=== PATIENT | male | born 1940 | race Caucasian/White ===

== ENCOUNTER 2016-12-27 18:51 | Inpatient (IN) ==
[2016-12-27] MEDS ORDERED: ASPIRIN PO STA (18:58)
[2016-12-27 19:42] LABS: BASO% 0.4 % (0.0-0.8); EOS# 0.01 X1000 (0.0-0.7); HEMATOCRIT 34.5 % (42.0-52.0); HEMOGLOBIN 10.6 g/dL (14.0-18.0); IMM GRAN# 1.25 X1000 (0.0-0.04); IMM GRAN% 5.9 % (0.0-0.5); LYMPH# 1.26 X1000 (1.2-3.4); LYMPH% 5.9 % (20.5-51.1); MANUAL DIFF NEEDED? NO; MCHC 30.7 g/dL (33-37); MCV 91.3 FL (81-99); MONO# 0.92 X1000 (0.11-0.59); MONO% 4.3 % (1.7-9.3); MPV 10.5 FL (7.4-10.4); NEUT% 83.5 % (42.2-75.2); PLT 199 X1000 (130-400); RBC 3.78 XMIL (4.7-6.1)
--- NOTE | 2016-12-27 19:44 | Diag Imaging Result Doc PS360 ---
CHEST-2 VIEWS - 12/27/2016 INDICATION: CP TECHNIQUE: COMPARISON: 11/20/2016 FINDINGS: There is improved aeration of the dense left upper lobe consolidation, with an air cavity present now, that was visible on the CT from 11/06/2016. There is severe COPD with pulmonary scarring. No new infiltrates. Heart size is normal. IMPRESSION: Slight improvement in aeration of the densely consolidated left upper lobe. No new abnormalities. Electronically signed by Jeb Webber 12/27/2016 7:42 PM
[2016-12-27 19:46] LABS: INR 1.01; PROTIME 10.6 Seconds (9.2-11.7); PTT 25.4 Seconds (22.0-36.0)
[2016-12-27 20:02] LABS: AGAP 13; ALKALINE PHOSPHATASE 118 U/L (32-122); BUN 18 mg/dL (8-22); CALCIUM 8.8 mg/dL (8.8-10.2); CHLORIDE 96 mmol/L (98-107); COSMO 268; GOT 33 U/L (10-34); GPT 21 U/L (10-44); MAGNESIUM 1.5 mg/dL (1.5-2.7); POTASSIUM 4.6 mmol/L (3.5-5.1); SODIUM 130 mmol/L (136-145); TCO2 21 mmol/L (25-35); TOTAL BILIRUBIN 0.18 mg/dL (0.20-1.00); TOTAL PROTEIN 5.9 g/dL (6.3-8.3)
[2016-12-27 20:03] LABS: CK PROFILE 510 U/L (24-204)
[2016-12-27 20:17] LABS: CK INDEX 13.5 (0.0-2.5); CK-MB 69.03 ng/mL (0.0-5.0)
--- NOTE | 2016-12-27 21:33 | Diag Imaging Result Doc PS360 ---
ANGIOGRAM/PULMONARY ARTERIES - 12/27/2016 INDICATION: coughing blood, lung cancer, + DDimer and trop TECHNIQUE: Axial CT images were obtained after administering intravenous contrast. Coronal MIP images were generated. A CT dose reduction protocol was used. COMPARISON: 11/20/2016 FINDINGS: There is no visible pulmonary embolism. No active contrast extravasation or obvious source of the bleeding. There is decreased density of the consolidated left upper lobe, with an air cavity centrally. This cavity was fluid-filled but visible on 11/20/2016. There are CABG changes. Heart size is grossly normal. There is chronic bronchitis particularly in the lower lobes. There is some mucous plugging of segmental airways in the right lower lobe. There is severe COPD. The adrenals are bulky stable from prior. There are some stable gallstones in the gallbladder. There are moderate degenerative changes of the spine. No acute or suspicious bony lesion. IMPRESSION: 1. No pulmonary embolism or source for the bleeding. 2. Improved aeration of the diseased consolidated left upper lobe. 3. Severe COPD with chronic bronchitis. Mucous plugging of segmental airways in the right lower lobe. Electronically signed by Jeb Webber 12/27/2016 9:30 PM
[2016-12-27 21:45] LABS: CK INDEX 13.7 (0.0-2.5); CK-MB 122.5 ng/mL (0.0-5.0)
--- NOTE | 2016-12-27 21:45 | PROVIDER DOCUMENTATION ---
This chart was entered by Chau Morrow Scribe, acting as scribe for Jamaal Marshall MD. HPI-Chest Pain - General Chief Complaint: Chest Pain Stated Complaint: "CP, SPITTING UP BLOOD" Time Seen by Provider: 12/27/16 19:04 Source: patient Allergies/Adverse Reactions: Patient Allergies Allergy/AdvReac Type Severity Reaction Status Date / Time No Known Allergies Allergy Verified 12/27/16 19:43 Home Medications: Home Medication List Medication Instructions Recorded Confirmed Last Taken Type ATORVAstatin [Lipitor] 40 mg PO HS 08/09/12 12/27/16 12/26/16 History Clopidogrel [Plavix] 75 mg PO DAILY 08/09/12 12/27/16 12/27/16 History Albuterol Sulfate [Proair Hfa] 2 puff IH Q4H PRN PRN 11/20/16 12/27/16 12/27/16 History Ferrous Sulfate [Iron] 325 mg PO BID 11/20/16 12/27/16 12/27/16 History Megestrol Acetate 40 mg PO DAILY 11/20/16 12/27/16 12/27/16 History Pantoprazole Sodium 40 mg PO DAILY 11/20/16 12/27/16 12/27/16 History Sitagliptin Phosphate [Januvia] 100 mg PO DAILY 11/20/16 12/27/16 12/27/16 History Dexamethasone 2 mg PO HS 12/27/16 12/27/16 12/26/16 History Dexamethasone 4 mg PO DAILY 12/27/16 12/27/16 12/27/16 History Sertraline HCl 25 mg PO DAILY 12/27/16 12/27/16 12/27/16 History Temazepam 15 mg PO HS 12/27/16 12/27/16 12/26/16 History - History of Present Illness-CP Nature of Presenting Problem: Pt is a 76 yowm who presents to ER via EMS with CC of chest pain that radiated to LUE that started this am. Pt reports that he has had similar pain like this before and states that the pain is normally intermittent, but the pain never resolved today, so pt called EMS. Pt reports that he took 1/4 of a 325mg aspirin , and states his pain is resolving. Pt also complains of hemoptysis and SOB, but has hx of lung cancer (last chemo tx x2 weeks ago) but reports chronic SOB. Pt also reports hx of HTN and hyperlipidemia. Location: reports: central Chest Pain Radiation: reports: arms (LUE) Severity in ED: moderate Onset/Duration: this morning Timing: improving Associated Symptoms: reports: shortness of breath (hemoptysis). denies: abdominal pain, back pain, diaphoresis, dizziness, edema, fatigue, headache, heartburn, nausea, rash, swelling/lump in chest, syncope, vomiting, weakness Aspirin Treatment Today: 325 mg x 1 (325x1/4 mg), provided at home Similar Symptoms Previously?: Yes Recently Seen Here or By Another Healthcare Provider: No Review of Systems - Adult - REVIEW OF SYSTEMS - ADULT Constitutional: denies: chills, fever, fatique, night sweats, weight gain, weight loss Eyes: reports: no symptoms reported Ears, Nose, Mouth & Throat: reports: no symptoms reported Cardiovascular: reports: chest pain. denies: edema, heart murmur, irregular heart rate, orthopnea, palpitations, poor circulation, PND, syncope Respiratory: reports: hemoptysis, shortness of breath. denies: chronic cough, cough, dyspnea on exertion, excessive sputum production, pleurisy, wheezing Gastrointestinal: denies: diarrhea, nausea, vomiting Genitourinary: reports: no symptoms reported Musculoskeletal: reports: no symptoms reported Integumentary: reports: no symptoms reported Neurological: reports: no symptoms reported Psychiatric: reports: no symptoms reported Endocrine: reports: no symptoms reported Hematologic/Lymphatic: reports: no symptoms reported Allergic/Immunologic: reports: no symptoms reported All Other Systems: Reviewed and Negative Past History - Adult - PAST MEDICAL HISTORY-ADULT Review of Records: reports: Nursing Assessment Review, Medications Reviewed Respiratory: reports: cancer - IMMUNIZATION STATUS Childhood Immunizations: See Nurse Assessment Flu Vaccine: See Nurse Assessment Physical Exam-General - PHYSICAL EXAM-ADULT Initial Vital Signs Reviewed: Yes - CONSTITUTIONAL General Appearance: appears well, alert, mild distress - EYES Eyes: PERRL/EOMI, pink conjunctivae - RESPIRATORY Respiratory: chest non-tender, lungs clear, no pleuratic chest pain, no respiratory distress, no accessory muscle use, decreased breath sounds (coarse breath sounds bilaterally). negative: normal breath sounds, wheezing - CARDIOVASCULAR Cardiovascular: normal peripheral pulses, regular rate, rhythm. negative: bradycardia, tachycardia, irregularly irregular - GASTROINTESTINAL (ABDOMEN) Abdominal Exam: normal bowel sounds, non tender, soft, no organomegaly, no pulsatile mass. negative: guarding, rebound, tenderness - MUSCULOSKELETAL Back Exam: no CVA tenderness, no vertebral tenderness. negative: CVA tenderness , vertebral tenderness Extremity: no pedal edema, no calf tenderness, normal capillary refill, pelvis stable. negative: pedal edema - PSYCHIATRIC Psych/Mental Status: normal mood/affect, normal thought content, normal thought process, oriented x 3 Progress - PLAN OF CARE/RESULTS Progress/Plan/Lab Results: Vital Signs - 8 hr 12/27/16 18:58 12/27/16 19:07 12/27/16 19:45 Temperature 98.0 F Pulse Rate 105 H 99 H 100 H Respiratory Rate 24 22 18 Blood Pressure 162/79 163/100 150/91 O2 Sat by Pulse Oximetry 100 98 98 12/27/16 21:26 Temperature Pulse Rate 91 H Respiratory Rate 24 Blood Pressure 136/86 O2 Sat by Pulse Oximetry 99 Laboratory Results - last 24 hr 12/27/16 12/27/16 12/27/16 19:10 19:10 19:10 WBC 21.23 H RBC 3.78 L Hgb 10.6 L Hct 34.5 L MCV 91.3 MCH 28.0 MCHC 30.7 L RDW Std Deviation 19.4 H Plt Count 199 MPV 10.5 H Immature Gran % (Auto) 5.9 H Neut % (Auto) 83.5 H Lymph % (Auto) 5.9 L [place] % (Auto) 4.3 Eos % (Auto) 0.0 Baso % (Auto) 0.4 Immature Gran # (Auto) 1.25 H Neut # (Auto) 17.71 H Lymph # (Auto) 1.26 [place] # (Auto) 0.92 H Eos # (Auto) 0.01 Baso # (Auto) 0.08 PT INR PTT (Actin FS) D-Dimer 4.25 H Sodium 130 L Potassium 4.6 Chloride 96 L Carbon Dioxide 21 L Anion Gap 13 BUN 18 Creatinine 0.6 L Estimated GFR/1.73 m2 > 60 BUN/Creatinine Ratio 30 Glucose 196 H Calculated Osmolality 268 Calcium 8.8 Magnesium 1.5 Total Bilirubin 0.18 L AST 33 ALT 21 Alkaline Phosphatase 118 Creatine Kinase 510 H Creatine Kinase Index 13.5 H CK-MB (CK-2) 69.03 H Troponin T Jyp-A-Aobnjbhrvzg Pept Total Protein 5.9 L Albumin 3.0 L Globulin 2.9 Albumin/Globulin Ratio 1.0 12/27/16 12/27/16 12/27/16 19:10 19:10 19:21 WBC RBC Hgb Hct MCV MCH MCHC RDW Std Deviation Plt Count MPV Immature Gran % (Auto) Neut % (Auto) Lymph % (Auto) [place] % (Auto) Eos % (Auto) Baso % (Auto) Immature Gran # (Auto) Neut # (Auto) Lymph # (Auto) [place] # (Auto) Eos # (Auto) Baso # (Auto) PT 10.6 INR 1.01 PTT (Actin FS) 25.4 D-Dimer Sodium Potassium Chloride Carbon Dioxide Anion Gap BUN Creatinine Estimated GFR/1.73 m2 BUN/Creatinine Ratio Glucose Calculated Osmolality Calcium Magnesium Total Bilirubin AST ALT Alkaline Phosphatase Creatine Kinase Creatine Kinase Index CK-MB (CK-2) Troponin T 0.881 H* Trh-B-Qclwqwsksjo Pept 5773 H Total Protein Albumin Globulin Albumin/Globulin Ratio 12/27/16 12/27/16 20:40 20:40 WBC RBC Hgb Hct MCV MCH MCHC RDW Std Deviation Plt Count MPV Immature Gran % (Auto) Neut % (Auto) Lymph % (Auto) [place] % (Auto) Eos % (Auto) Baso % (Auto) Immature Gran # (Auto) Neut # (Auto) Lymph # (Auto) [place] # (Auto) Eos # (Auto) Baso # (Auto) PT INR PTT (Actin FS) D-Dimer Sodium Potassium Chloride Carbon Dioxide Anion Gap BUN Creatinine Estimated GFR/1.73 m2 BUN/Creatinine Ratio Glucose Calculated Osmolality Calcium Magnesium Total Bilirubin AST ALT Alkaline Phosphatase Creatine Kinase 895 H Creatine Kinase Index CK-MB (CK-2) Troponin T 2.070 H* D Zth-V-Zwrabqrgxja Pept Total Protein Albumin Globulin Albumin/Globulin Ratio Orders Category Date Time Status Cardiac Monitoring DIRECTED Care 12/27/16 18:58 Active ANGIOGRAM/PULMONARY ARTERIES [CT] Stat Exams 12/27/16 20:55 Completed CHEST-2 VIEWS [RAD] Stat Exams 12/27/16 18:58 Completed CBC WITH ELECTRONIC DIFF [HEME] Stat Lab 12/27/16 19:10 Completed CK PROFILE [SP CHEM] Stat Lab 12/27/16 19:10 Completed CK PROFILE [SP CHEM] Stat Lab 12/27/16 20:40 Results COMPREHENSIVE METABOLIC PANEL [CHEM] Stat Lab 12/27/16 19:10 Completed D-DIMER [CHEM] Stat Lab 12/27/16 19:10 Completed MAGNESIUM [CHEM] Stat Lab 12/27/16 19:10 Completed PRO B-NATRIURETIC PEPTIDE Stat Lab 12/27/16 19:21 Completed PROTIME WITH INR [COAG] Stat Lab 12/27/16 19:10 Completed PTT [COAG] Stat Lab 12/27/16 19:10 Completed TROPONIN T Stat Lab 12/27/16 19:10 Completed TROPONIN T Stat Lab 12/27/16 20:40 Completed Aspirin Med 12/27/16 18:58 Discontinued 325 mg PO STAT STA EKG [EKG] Stat Ther 12/27/16 18:58 Ordered 2142: Dr. Saldana (Hospitalist): Accepted pt for admit Result Diagrams: 12/27/16 19:10 12/27/16 19:10 - EKG 1 Time of EKG reading by physician:: 19:56 EKG Read and Signed by:: Jamaal Marshall EKG Interpretation (*Must complete 3 of following elements*): Abnormal (L axis deviation; LVH with QRS widening and repolarization abnormality; Cannot rule out Septal infarct, age undetermined) Rate: 97 Rhythm: Sinus rhythm with occasional PVC - XRAY 1 XRAY: Bilateral XRAY Study: Chest Impression: See EMR Report (compared to 11/20/2016; previously left sided lung cancer infiltrate has decreased; there is an air-fluid level in the ANDER - Dr. Alphonso wen) XRAY Interpretation: See report - CT/MRI 1 CT Study: Angiogram Impression: See EMR Report (No PE or source for the bleeding. Improved aeration of the diseased consolidated left upper lobe. Severe COPD with chronic bronchitis. Mucous plugging of the segmental airways in the right lower lobe - Dr. Webber (Radiologist)) CT Results: See report - CONSULTS/PCP/HOSPITALIST Notification #1 *Consult/PCP/Hospitalist*: Dr. Osbaldo Boothe (Ed Tech) Time Discussed: 20:49 (Recommends Pulmonary-Angiogram) #2 Consult: Dr. Monk (Ed Tech) Time Discussed: 20:49 (Dr. Boothe paiged for 30 minutes; Dr. Boothe called back right as Dr. Monk was contacted) #3 Consult: Dr. Osbaldo Silverman (Ed Tech) Time Discussed: 21:40 (Gave report on pt's Angiogram to Dr. Boothe; Dr. Boothe recommends to admit and do not anticoagulate pt) Departure - Departure Date of Disposition Decision: 12/27/16 Time of Disposition Decision: 21:44 DIAGNOSIS: NSTEMI (non-ST elevated myocardial infarction), Hemoptysis Lung cancer Qualifiers: Laterality: left Lung location: upper lobe of lung Qualified Code(s): C34.12 - Malignant neoplasm of upper lobe, left bronchus or lung Disposition: ADMITTED INPATIENT 09 Certified Medical Emergency: Emergent Condition: Fair Referrals and Follow-Ups: Dianna Raya [Primary Care Provider] - - Critical Care Note This patient required my direct & personal management of CC.: No This chart was documented by the indicated scribe, (Chau Morrow Scribe) and accurately reflects the services I performed and decisions made by me, Jamaal Calhoun MD, as attested by the provider's signature.
[2016-12-27] MEDS ORDERED: LOPRESSOR IV ONE (23:38)
--- NOTE | 2016-12-28 00:09 | HISTORY AND PHYSICAL ---
CHIEF COMPLAINT: Chest pain. HISTORY OF PRESENT ILLNESS: This is a 76-year-old gentleman with CAD status post CABG and lung cancer who came in with chest pain and spitting up blood. Patient reports chest pain radiating to his left upper extremity, not to jaw. He has had pain similar to this before and does have a CAD history status post CABG which was over 10 years ago. He took aspirin although he has been a little concerned about taking aspirin because of the hemoptysis #1 and also he has had some low blood pressures he reports even as low as 70 systolic. He does have history of lung cancer. Last chemo was about 2 weeks. Also reported associated shortness of breath. Workup in the ER revealed elevated troponins. His EKGs were really not that remarkable most consistent with a non- ST-elevation ND. He has had a PE protocol CT which was negative for pulmonary embolus. Patient admitted for non-STEMI. PAST MEDICAL HISTORY: 1. CAD status post CABG. I think it was maybe 10-12 years ago. 2. Hypertension. 3. Hyperlipidemia. 4. COPD. 5. History of CVA. 6. Lung cancer with thoracotomy but he has had I believe recurrence. SOCIAL HISTORY: No current tobacco. No ethanol. FAMILY HISTORY: Mother had CAD. ALLERGIES: No known drug allergies. MEDICATIONS: He takes ProAir, Lipitor 40, Plavix 75 daily, dexamethasone 2 at night 4 during the morning, iron 325 b.i.d., Megace 40 daily, Protonix 40 daily, sertraline 25 daily, Januvia 100 daily, temazepam 15 daily. REVIEW OF SYSTEMS: Reviewed, otherwise negative times a 10 point review of systems. PHYSICAL EXAMINATION: VITAL SIGNS: Blood pressure 140/86, heart rate of 84, respiratory rate 15, temperature 98 degrees. GENERAL: Well-developed male in no acute distress. HEAD: Normocephalic, atraumatic. EYES: Pupils equal, round, reactive to light. Extraocular movements were intact. EAR/NOSE/THROAT: Had moist mucous membranes. NECK: Supple. CARDIOVASCULAR: Regular rate and rhythm. No murmurs, gallops, or rubs. PULMONARY: Bilateral breath sounds. Diminished at the bases. GI: Soft, nontender, nondistended. Bowel sounds are positive. EXTREMITIES: No clubbing or cyanosis. LYMPHATICS: He had about 1+ pitting edema. LABORATORY DATA: Again was unremarkable except for he does have a pretty high white count 21,000 but he has been on Decadron, hemoglobin and hematocrit 10 and 34, platelets of 199,000. D-dimer is 4.25. Sodium 130, creatinine 0.6, CK/MB initially 0.88, troponin now 2.07 with an elevated MB, elevated index, elevated CPK, BNP of 5773. CT angiogram was negative for PE. However he does have some mucous plugging of the segmental airways in the right lower lobe. PROBLEM LIST: 76-year-old presenting with chest pain, hemoptysis. 1. Chest pain. He has a non-ST elevation myocardial infarction. With hemoptysis I am going to have difficulty anticoagulating although at this point I think that is a more concerning feature. We will continue aspirin, beta blockers as much as he can tolerate, nitroglycerine paste and follow clinically. Cardiology will be consulted. Echocardiogram will be pursued and we will go from there. 2. Hemoptysis may be multifactorial, may be related to lung cancer. There is no evidence of PE, does have mucous plugging which may be related to just simple bronchitis, pneumonia, we will continue nebulizations, Mucomyst and follow clinically. 3. Lung cancer aware of diagnosis. Will continue to monitor and follow closely. Dr. Rosas will be consulted so they can decide about long-term and short-term prognosis whether or not he can be amenable to a cardiac catheterization, stable for anticoagulation. 4. Diabetes. Continue monitor blood sugars and follow closely. cc: Osbaldo Boothe MD
[2016-12-28] MEDS ORDERED: TYLENOL PO PRN (00:20)
[2016-12-28] MEDS ORDERED: VENTOLIN HFA INH PRN (00:20)
[2016-12-28] MEDS ORDERED: ZOFRAN IV PRN (00:20)
[2016-12-28] MEDS ORDERED: NITROGLYCERIN TOP ONE (00:20)
[2016-12-28] MEDS: RESTORIL PO SCH ×2 (01:08→20:59)
[2016-12-28 01:50] LABS: CK INDEX 16.2 (0.0-2.5); CK-MB 160.8 ng/mL (0.0-5.0)
[2016-12-28 05:21] LABS: HEMATOCRIT 35.3 % (42.0-52.0); HEMOGLOBIN 10.9 g/dL (14.0-18.0); MCH 28.7 PG (27-31); MCHC 30.9 g/dL (33-37); MCV 92.9 FL (81-99); RBC 3.8 XMIL (4.7-6.1)
[2016-12-28 05:28] LABS: HEMOGLOBIN A1C 6.4 % (4.8-6.0)
--- NOTE | 2016-12-28 05:30 | EKG Report ---
Test Performed on : 12/27/2016 7:56:29 PM Test Reason : Chest Pain Blood Pressure : / mmHG Vent. Rate : 097 BPM Atrial Rate : 097 BPM P-R Int : 196 ms QRS Dur : 138 ms QT Int : 356 ms P-R-T Axes : 000 -54 119 degrees QTc Int : 452 ms Sinus rhythm. with occasional premature ventricular complexes. Left axis deviation Left ventricular hypertrophy with QRS widening and repolarization abnormality Cannot rule out Septal infarct (cited on or before 08-AUG-2012) Abnormal ECG When compared with ECG of 08-AUG-2012 14:46, premature ventricular complexes. are now present Vent. rate has increased BY 38 BPM QRS axis shifted left Questionable change in initial forces of Septal leads Unconfirmed Result
[2016-12-28 05:35] LABS: AGAP 10; BUN 15 mg/dL (8-22); CALCIUM 9.2 mg/dL (8.8-10.2); CHLORIDE 99 mmol/L (98-107); COSMO 268; HDL 75 mg/dL (35-55); LDL 26 mg/dL; POTASSIUM 4.1 mmol/L (3.5-5.1); SODIUM 134 mmol/L (136-145); TCO2 25 mmol/L (25-35); TRIGLYCERIDES 51 mg/dL (39-160); VLDL 10 mg/dL
[2016-12-28 05:56] LABS: CK INDEX 17.4 (0.0-2.5)
[2016-12-28] MEDS: HUMULIN R SUBQ SCH ×4 (06:17→21:09)
[2016-12-28] MEDS: LOPRESSOR PO SCH ×3 (06:34→17:49)
[2016-12-28] MEDS: NITROGLYCERIN TOP SCH ×3 (06:34→18:58)
[2016-12-28] MEDS: VENTOLIN HFA INH PRN ×3 (07:55→19:21)
[2016-12-28] MEDS ORDERED: HEPARIN 25,000 UNITS/D5W 25,000 UNIT/250 ML IV.SOLN IV SCH (08:15)
[2016-12-28] MEDS ORDERED: FERROUS SULFATE PO SCH (09:00)
--- NOTE | 2016-12-28 09:03 | CONSULTATION ---
DATE OF CONSULTATION: 12/28/2016 INDICATION FOR THE CONSULTATION: Non ST-elevation WI. HISTORY OF PRESENT ILLNESS: Mr. Valadez is a 76-year-old, white male with a history of coronary artery disease, coronary bypass and a previous WI. 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 In addition, he has a history of a right lung adenocarcinoma treated with resection and chemo in 2008. Yesterday, he began having some chest discomfort that he described as an aching sensation in his mid left chest. He is a difficult historian and reports that he has had some difficulty with chest discomfort for some time, although the last time I saw him in clinic in November, he was not complaining of any chest pain at that time. He continues to have trouble with shortness of breath. He is not aware of any exertional component causing the discomfort that he had yesterday and had no diaphoresis nausea or vomiting. This persisted for an hour or so and subsequently presented to ER. He has not had any recurrence of this discomfort during this hospitalization. His cardiac enzymes subsequently became positive over the course of the evening, PE study was negative. PAST MEDICAL HISTORY: 1. Significant for ischemic cardiomyopathy with previous anterior WI. He has had a number of studies recently evaluating this. He had an echocardiogram in November demonstrating an EF of 15- 20% with wall motion abnormalities in the anterior and apical segments. He had a history of bypass with a vein graft to the ramus, a vein graft to a PDA and an REYNA. He last had a nuclear scan in 2013. This demonstrated a severe intensity large defect in the anterior apical portions of the left ventricle. This was consistent with his most recent cardiac catheterization demonstrating an occluded left main with patent vein graft to the ramus and REYNA to the LAD. 2. History of CVA in 2012 with a history of a left carotid endarterectomy at that time as well. 3. Hypertension. 4. Hyperlipidemia. 5. Diabetes. 6. Tobacco abuse. 7. Adenocarcinoma of the lung with resection of part of the right lung, as well as chemo in 2008. 8. Severe COPD followed by Dr. Bulmaro Chase. 9. Reflux disease. SOCIAL HISTORY: Significant for no current tobacco or alcohol. FAMILY HISTORY: Significant for a mother with a history of coronary disease. ALLERGIES: He has no known drug allergies. REVIEW OF SYSTEMS: Ten-system review of systems is negative except for those things mentioned in HPI. PHYSICAL EXAMINATION: Vital Signs: He is afebrile. His heart rate is in the 70s to 80s. His blood pressure most recently was 102/51. His O2 saturation was in the 80s on room air. General: He is in an ill-appearing, cachectic, white male. He is in no acute distress and lying flat in bed at the time of my examination. HEENT: Oropharynx is moist. Normal dentition. Eye examination is pink conjunctivae. White sclerae. Neck: Examination shows no obvious thyromegaly or thyroid tenderness. Cardiovascular: He is in a regular rate and rhythm. He has no obvious murmurs. He has no S3. He has no lower extremity edema. Chest: Exam is clear bilaterally. He has no increased work of breathing. Abdomen: Soft, nontender, nondistended. He has no obvious organomegaly. Skin Exam: Warm and dry throughout without any rashes. Neurological: Moving all extremities well. Cranial nerves 2-12 are intact without any sensation deficits. Psychiatric: Alert, oriented, pleasant. He has normal mood and affect. PERTINENT DATA: He has an EKG from 7:56 p.m. yesterday showing sinus rhythm, occasional PVCs. He has poor R-wave progression, as well as what appears to be a nonspecific intraventricular conduction delay. This appears to be more of a left bundle type delay. He had a PE study yesterday showing severe COPD, mucous plugging of the segmental airways in the right lower lobe. Improved aeration of the disease, consolidated left upper lobe. No evidence of pulmonary embolism or bleeding source. His laboratory data shows a white count of 21. Hematocrit 35, platelet count 198. Sodium 134, potassium 4.1, BUN 15, creatinine 0.6. His cardiac enzymes show troponin initially of 0.88 and subsequently going up to 3.74. His LDL is 26. ASSESSMENT: 1. Non ST-elevation myocardial infarction in a patient with a history of severe ischemic cardiomyopathy. 2. Hemoptysis in a patient with a history of lung cancer, currently on chemotherapy. PLAN: Patient is currently on beta blockers, aspirin and high-intensity lipid therapy. I will add in a heparin drip. We will like the oncology services as well as the pulmonology services to evaluate the patient and assess his long-term risk with medication such as Plavix. I believe he will need a cardiac catheterization prior to discharge and we will hopefully be able to mitigate the risk with recommendations by Oncology as well as Pulmonology. The patient has quite severe comorbidities and with his already baseline severe ischemic cardiomyopathy he has a relatively poor prognosis in the short term. cc: Osbaldo Boothe MD
[2016-12-28] MEDS: PROTONIX PO SCH (09:53)
[2016-12-28] MEDS: MEGACE PO SCH (09:53)
[2016-12-28] MEDS: ASPIRIN PO SCH (09:53)
[2016-12-28] MEDS: FERROUS SULFATE PO SCH ×2 (09:53→20:59)
[2016-12-28] MEDS: ZOLOFT PO SCH (09:53)
[2016-12-28] MEDS: JANUVIA PO SCH (09:53)
[2016-12-28] MEDS: DECADRON PO SCH ×2 (09:59→21:00)
[2016-12-28] MEDS ORDERED: HEPARIN 25,000 UNIT in NS 250 ML IV SCH (10:45)
[2016-12-28 11:19] LABS: CK INDEX 18.7 (0.0-2.5); CK-MB 88.37 ng/mL (0.0-5.0)
[2016-12-28] MEDS ORDERED: VANCOMYCIN IV PER PHARMACY MISC SCH (14:45)
--- NOTE | 2016-12-28 15:22 | PROGRESS NOTE ---
DATE: 12/28/2016 SUBJECTIVE: The patient is resting comfortably in bed. He denies having any chest pain, shortness of breath at this time. OBJECTIVE: Vital Signs: Temperature 98 degrees, blood pressure 99/55, heart rate 77, respirations 18, O2 saturation is 98% on 2 L nasal cannula. General: This is an elderly male, lying in bed, in no acute distress. Head: Normocephalic, atraumatic. Heart: S1, S2. Normal. Regular rate and rhythm. Lungs: Clear to auscultation bilaterally. No crackles. No rales. Abdomen: Positive bowel sounds. Soft, nontender, nondistended. Extremities: The patient does have +1 edema bilaterally. Neurologic: The patient is alert and oriented x3. LABS: White blood cell count 21, hemoglobin 10, hematocrit 35, platelets 198,000. Sodium 134, potassium 4.1, chloride 99, CO2 25, BUN 15, creatinine 0.6, glucose 137. Troponin 3.49. CK-MB 88.3. LDL 26, triglycerides 51. ASSESSMENT AND PLAN: 1. Rfm-CM-ncnpnuetv myocardial infarction. Continue on the current cardiac medications in addition to the heparin drip as directed by the cashier general. 2. Hemoptysis. The patient will be assessed by the automobile service advisor for further recommendations. 3. Acute left lower extremity deep vein thrombosis. The patient is on a heparin drip. 4. Leukocytosis. Will order a urinalysis plus blood cultures. The patient does appear to have pneumonia on CT with chronic bronchitis. Will order a sputum Gram stain and culture and start broad-spectrum antibiotics. 5. Lung cancer. We will consult the patient's oncologist for further recommendations. 6. Diabetes mellitus type 2. Continue on sliding scale insulin. cc: Eli Fernando MD
[2016-12-28] MEDS: ZOSYN 3.375 GM/NS 3.375 GM/50 ML IVPB IV SCH ×2 (15:45→21:05)
[2016-12-28 16:19] LABS: URINE MICRO REVIEW NEEDED? NO; URINE SOURCE CLEAN CATCH
[2016-12-28 16:23] LABS: BILIRUBIN URINE NEGATIVE (NEGATIVE); BLOOD URINE NEGATIVE (NEGATIVE); COLOR YELLOW; GLUCOSE URINE NEGATIVE (NEGATIVE); LEUKOCYTES URINE NEGATIVE (NEGATIVE); NITRITE URINE NEGATIVE (NEGATIVE); PH URINE 7.5; PROTEIN URINE NEGATIVE (NEGATIVE); TURBIDITY URINE CLEAR (CLEAR); UROBILINOGEN URINE NORMAL (NORMAL)
[2016-12-28 16:24] LABS: UR EPITHELIAL CELLS <10 /HPF (<10); URINE BACTERIA NEGATIVE /HPF; URINE WBC <10 /HPF (<10)
--- NOTE | 2016-12-28 16:25 | CONSULTATION ---
DATE OF CONSULTATION: 12/28/2016 REQUESTING PHYSICIAN: Dr. Osbaldo Boothe. REASON FOR CONSULTATION: Hemoptysis. HISTORY OF PRESENT ILLNESS: Mr. Valadez is a 76-year-old, white male with severe radiographic COPD, ischemic cardiomyopathy, who underwent a right upper lobectomy for lung cancer in 2008. Patient recently had consolidation in the left upper lobe and a CT scan in November from [facility] reveals consolidation in the left upper lobe with central area of necrosis. The patient underwent CT-guided biopsy at this facility which revealed squamous cell carcinoma. He has been under treatment of Dr. Rosas. The patient is a difficult historian, but does report coughing up blood yesterday and having chest pain. He cannot tell me the sequence of events as to whether the chest pain came before or after the hemoptysis. He reports he coughed up a tablespoon of blood 5- 10 times. The patient presented to the emergency room with chest pain. No radiation to the left upper extremity. He subsequently has been diagnosed with a [id number] myocardial infarction. PAST MEDICAL HISTORY: 1. Severe COPD. Dr. Boothe's note indicates he sees Dr. Chase, but patient has difficulty recalling if he sees a lung physician. 2. Status post right upper lobectomy for lung cancer in 2008. 3. Recent diagnosis of lung cancer in the left upper lobe. 4. Ischemic cardiomyopathy with an ejection fraction of 15-20%. The patient has an occluded left main with a vein graft to the ramus and REYNA to the LAD. 5. History of CVA with subsequent carotid endarterectomy. 6. Hypertension. 7. Diabetes mellitus. 8. Dyslipidemia. 9. Gastroesophageal reflux disease. SOCIAL HISTORY: Prior tobacco use, but none currently. No alcohol use. FAMILY HISTORY: Positive for heart disease. REVIEW OF SYSTEMS: Notable for shortness of breath, chest pain, cough, productive of bloody sputum. PHYSICAL EXAMINATION: General: Reveals a frail, white male, with a BMI less than 19. He reports his chest pain has resolved. He is not coughing up any blood. Vital Signs: Blood pressure 102/51, heart rate 78, respiratory rate 18, oxygen saturation 98% on supplemental oxygen. HEENT: Mild temporal wasting. EOMI, PERRL, oropharynx is clear. Neck: Supple. Chest: Reveals scattered rhonchi bilaterally. Cardiac: Regular rate. Normal S1, normal S2. Abdomen: Soft and without hepatosplenomegaly. Extremities: Without edema. LABORATORIES: Chemistry: Sodium 134, potassium 4.1, chloride 99, bicarbonate 25, BUN 15, creatinine 0.6, troponin is 3.74, CPK 754, with a CPK-MB of 131 and an index of 17.4. 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 The patient will be at significant risk for hemoptysis given his cavitary/necrosing tumor in the left upper lobe with augmented anticoagulation. Unfortunately, patient is also at risk for dying if he has another myocardial infarction. There is no perfect solution to his problem. The patient would not tolerate having a left upper lobectomy to remove this necrotic tumor. He will not be cured of this tumor and he has a limited expected life span. RECOMMENDATIONS: 1. Continue heparin therapy as you are doing. 2. Agree with aspirin as you are doing. 3. Consider the use of Plavix given his severe coronary artery disease, but he will be at risk for massive hemoptysis. 4. With severe combined heart and lung disease, recommend initiation of end of life discussions by Oncology. cc: Sudheer Astorga MD
[2016-12-28] MEDS ORDERED: VANCOMYCIN 1.35 GM in NS 250 ML IV ONE (17:00)
[2016-12-28] MEDS: LIPITOR PO SCH (20:59)
--- NOTE | 2016-12-28 21:23 | CONSULTATION ---
DATE OF CONSULTATION: 12/28/2016 ADMITTING PHYSICIAN: Dr. Umair Saldana. REQUESTING PHYSICIAN: Dr. Saldana. We appreciate this consult. CHIEF COMPLAINT: Assessed risk for Plavix in a patient with hemoptysis. HISTORY OF PRESENT ILLNESS: Mr. Valadez is a 76-year-old gentleman with a history of coronary artery disease status post coronary artery bypass grafting, hypertension, hyperlipidemia, COPD, CVA, and lung cancer with thoracotomy. The patient is well known to Dr. Rosas. He presented to [facility] secondary to chest pain that radiated to his left upper extremity. The patient did report that he has had similar pain before when he had an admission for coronary artery disease and CABG. The patient states that he took aspirin prior to coming to the hospital. The patient also is reporting hemoptysis secondary to non-small cell lung cancer. Upon presentation to [facility] the patient was found to have elevated troponins. EKGs were consistent with non-ST elevation myocardial infarction. The patient did undergo CT angiogram which was negative for PE. He is admitted for non-STEMI and we are consulted secondary to his history of non-small cell lung cancer. PAST MEDICAL HISTORY: As in HPI. PAST SURGICAL HISTORY: 1. Coronary artery bypass grafting. 2. Thoracotomy. SOCIAL HISTORY: The patient denies illicit drug or alcohol use. He has a history of smoking cigarettes. FAMILY HISTORY: Negative for any hematologic or oncologic problems. MEDICATIONS ON ADMISSION: 1. ProAir. 2. Lipitor. 3. Plavix. 4. Dexamethasone. 5. Megace. 6. Protonix. 7. Sertraline. 8. Januvia. 9. Temazepam. ALLERGIES: The patient has no known drug allergies. REVIEW OF SYSTEMS: A 14 point review of systems was obtained and is negative except as mentioned in HPI. PHYSICAL EXAMINATION: Mr. Valadez is a 76-year-old male lying supine in bed in no immediate distress.Vital Signs: Temperature 97.7 degrees, blood pressure 102/51, heart rate 78, respirations 18, O2 saturation is 87% on room air. HEENT: Normocephalic, atraumatic. Mucous membranes are somewhat pale and moist. Sclerae is anicteric. Extraocular movements intact. Neck: Supple. CV: S1-S2 is heard without murmur, rub or gallop. Lungs: With breath sounds clear to auscultation bilaterally and decreased in the bases. GI: Abdomen soft, nondistended, nontender. Bowel sounds positive all quadrants. No rebound or guarding noted. Extremities: Without clubbing, cyanosis, or edema. Dermatologic: No rashes, bruises or lesions. Neurologic: The patient is awake, alert and oriented x3. He has no focal deficit at this time. LABORATORY DATA: Hemoglobin 10.9, hematocrit 35.3, white blood cell count 21.08, platelets 198,000. Sodium 134, potassium 4.1, chloride 99, CO2 is 25, BUN 15, creatinine 0.6, and glucose is 78, calcium is 9.2. IMAGING STUDIES: Pulmonary arteriogram reveals no pulmonary embolism with severe COPD with mucus plugging in the right lower lobe and improved aeration in the left upper lobe. ASSESSMENT AND PLAN: 1. Stage IIIA non-small cell lung cancer status post cycle 1, day 8 of carboplatin and Gemzar on December 17. 2. Chest pain with diagnosis of non-ST segment elevation myocardial infarction. The patient is in need of anticoagulation but currently has hemoptysis. He is currently on aspirin and a beta greg. We would recommend either aspirin or Plavix but not both secondary to significant increase in bleeding risk. 3. Hemoptysis probably secondary to #1. The patient has no pulmonary embolism on arteriogram. He does have a mucous plug in his right lower lobe. The patient has some element of questionable pneumonia and bronchitis which are improved at this time. 4. Diabetes mellitus type 2. Would monitor glucose and continue medications. 5. We will follow along with you and make further recommendations pending outcomes. The above reflects the history, exam, assessment and plan of Dr. Rosas. Dictated by BLAS Montanez for Dank Rosas MD cc: BLAS Montanez MD
[2016-12-29] MEDS ORDERED: HEPARIN IV ONE ×2 (01:06→09:48)
[2016-12-29] MEDS: LOPRESSOR PO SCH ×4 (04:16→21:17)
[2016-12-29] MEDS: NITROGLYCERIN TOP SCH ×4 (04:16→23:13)
[2016-12-29] MEDS: ZOSYN 3.375 GM/NS 3.375 GM/50 ML IVPB IV SCH ×4 (04:17→21:20)
[2016-12-29 05:08] LABS: HEMATOCRIT 32.3 % (42.0-52.0); HEMOGLOBIN 9.7 g/dL (14.0-18.0); MCH 28.4 PG (27-31); MCV 94.4 FL (81-99); MPV 10.4 FL (7.4-10.4); RBC 3.42 XMIL (4.7-6.1)
[2016-12-29 05:32] LABS: AGAP 12; BUN 28 mg/dL (8-22); CALCIUM 8.4 mg/dL (8.8-10.2); CHLORIDE 99 mmol/L (98-107); COSMO 279; POTASSIUM 4.4 mmol/L (3.5-5.1); SODIUM 135 mmol/L (136-145); TCO2 24 mmol/L (25-35)
[2016-12-29] MEDS: HUMULIN R SUBQ SCH ×4 (06:25→21:20)
--- NOTE | 2016-12-29 06:45 | Extremity Venous Study ---
PROCEDURE NAME: Venous U/S Bilateral Legs - 12/28/2016 REQUESTING PHYSICIAN: Dr. Saldana. WILDLAND FIRE FIGHTER SPECIALIST: Ming. INDICATIONS: Edema of both legs. PROCEDURE PERFORMED: Bilateral lower extremity venous duplex and color flow imaging. EQUIPMENT: FiberSensingid E9 ultrasound system with a 9 LD transducer. FINDINGS: Images of the bilateral lower extremity venous system were obtained in both sagittal and transverse planes. Doppler was used to evaluate veins for spontaneity, phasicity, respiratory excursion, and digital augmentation. RESULTS: Acute DVT noted in the distal left common femoral vein, although there was flow around this. There was also some mild reflux noted in the left common femoral vein and right superficial femoral vein. It should be noted that the left greater saphenous vein has been harvested. INTERPRETATION: Acute deep venous thrombosis noted in the distal left common femoral vein with flow still present. By r&d lab technician's note, this was relayed on Dr. Fernando at 8:41 a.m. on 12/28/2016. cc: MD Junaid Vallejo MD
[2016-12-29] MEDS: VENTOLIN HFA INH PRN (07:30)
[2016-12-29] MEDS: JANUVIA PO SCH (09:07)
[2016-12-29] MEDS: PROTONIX PO SCH (09:07)
[2016-12-29] MEDS: MEGACE PO SCH (09:07)
[2016-12-29] MEDS: ASPIRIN PO SCH (09:07)
[2016-12-29] MEDS: FERROUS SULFATE PO SCH ×2 (09:07→21:17)
[2016-12-29] MEDS: DECADRON PO SCH ×2 (09:08→21:17)
[2016-12-29] MEDS: ZOLOFT PO SCH (09:08)
[2016-12-29] MEDS ORDERED: MISC. PHARMACY COMMUNICATION SCH (10:00)
[2016-12-29] MEDS ORDERED: HEPARIN 25,000 UNIT in NS 250 ML IV SCH ×5 (10:03→18:30)
--- NOTE | 2016-12-29 15:49 | PROGRESS NOTE ---
DATE: 12/29/2016 SUBJECTIVE: Mr. Valadez did not have any chest pain over the last 24 hours and has denied any chest pain during this hospitalization. OBJECTIVE: PHYSICAL EXAMINATION: Vital Signs: He is afebrile. Heart rate is 70, blood pressure 102/53. General: No acute distress. Cardiovascular: He sounds to be in a regular rate and rhythm. No murmurs. Chest: Exam is relatively clear to auscultation bilaterally. No increased work of breathing. Abdomen: Soft, nontender, nondistended. He has no obvious organomegaly. PERTINENT DATA: His laboratory data shows a white count of 19.4, his hematocrit is 32, platelet count 242,000. Sodium 135, potassium 4.4, BUN 28, creatinine 0.7. His cardiac enzymes last checked on the and were reviewed. His LDL is 26. ASSESSMENT: 1. Squamous cell carcinoma of the lung. 2. Non ST-elevation myocardial infarction. PLAN: Patient is high risk for any sort of a procedure. We have asked Dr. Rosas and Dr. Astorga to evaluate the patient and they believe dual antiplatelet therapy in the setting of a patient with current hemoptysis will be risky. For now, we will plan on continuing to treat with aspirin, as well as the heparin. I will stop the heparin in the morning which would complete 48 hours of treatment. We will continue him on the metoprolol as well as the high-dose statin therapy. We will plan on initiating Ranexa. I had an at-length discussion with the patient and discussed potentially proceeding with hospice as he is not a candidate for any sort of an intervention, has a severely reduced ejection fraction on previous evaluations as well as ongoing treatment of lung cancer. I have asked them to discuss this with Dr. Rosas to ensure that initiation of hospice would not potentially interfere with his chemotherapy. We certainly could get palliative care involved as well. We will evaluate patient with an echocardiogram in the morning. cc: Osbaldo Boothe MD [facility] MEDICAL CENTERBandar
--- NOTE | 2016-12-29 15:54 | PROGRESS NOTE ---
DATE: 12/29/2016 SUBJECTIVE: The patient is resting comfortably in bed. He states that he feels a lot better today. His coughing fits have decreased. OBJECTIVE: Vital Signs: Temperature 97.8 degrees, blood pressure 102/53, heart rate 70, respirations 20, O2 saturations 100% on 2 L nasal cannula. General: This is an elderly male, lying in bed, in no acute distress. Head: Normocephalic, atraumatic. Heart: S1, S2. Normal. Regular rate and rhythm. Lungs: Equal air entry bilaterally. No crackles, no rales. Abdomen: Positive bowel sounds. Soft, nontender, nondistended. Extremities: No edema. No cyanosis. No calf tenderness. Neurologic: The patient is alert and oriented x3. LABS: White blood cell count 19, hemoglobin 9.7, hematocrit 32, platelets 342,000. Sodium 135, potassium 4.4, chloride 99, CO2 24, BUN 28, creatinine 0.7, glucose 168, calcium 8.4. ASSESSMENT AND PLAN: 1. Non ST-elevation myocardial infarction. Continue with the current cardiac medications. Further recommendations as per the test desk supervisor. 2. Acute left lower extremity deep vein thrombosis. Continue on the heparin drip. 3. Chronic bronchitis versus pneumonia. Continue on IV antibiotic therapy plus bronchodilator therapy. Pulmonary is following. 4. Leukocytosis. Slightly improved. Continue with IV antibiotic therapy. 5. Lung cancer. Aware. Oncology is following. 6. Diabetes mellitus type 2. Stable. Continue on sliding scale insulin. 7. Anemia of chronic disease. The patient's hemoglobin and hematocrit remain stable. 8. Situational depression. Continue on Zoloft. cc: Eli Fernando MD
[2016-12-29] MEDS ORDERED: VANCOMYCIN 1 GM/NS 1 GM/250 ML IVPB IV SCH (17:00)
[2016-12-29] MEDS: RESTORIL PO SCH (21:17)
[2016-12-29] MEDS: LIPITOR PO SCH (21:17)
[2016-12-29] MEDS: RANEXA PO SCH (21:17)
[2016-12-30] MEDS ORDERED: HEPARIN IV ONE ×2 (00:38→08:29)
[2016-12-30] MEDS ORDERED: HEPARIN 25,000 UNIT in NS 250 ML IV SCH (00:39)
[2016-12-30] MEDS: ZOSYN 3.375 GM/NS 3.375 GM/50 ML IVPB IV SCH ×4 (04:19→20:28)
[2016-12-30] MEDS: LOPRESSOR PO SCH ×4 (04:20→20:11)
[2016-12-30] MEDS: NITROGLYCERIN TOP SCH ×4 (04:20→20:11)
[2016-12-30 06:58] LABS: HEMATOCRIT 34.3 % (42.0-52.0); HEMOGLOBIN 10.2 g/dL (14.0-18.0); MCH 27.9 PG (27-31); MCHC 29.7 g/dL (33-37); PLT 348 X1000 (130-400); RBC 3.65 XMIL (4.7-6.1)
[2016-12-30 07:10] LABS: AGAP 11; BUN 24 mg/dL (8-22); CALCIUM 8.8 mg/dL (8.8-10.2); CHLORIDE 100 mmol/L (98-107); COSMO 279; POTASSIUM 4.7 mmol/L (3.5-5.1); SODIUM 137 mmol/L (136-145); TCO2 26 mmol/L (25-35)
[2016-12-30] MEDS: HUMULIN R SUBQ SCH ×4 (07:23→20:57)
[2016-12-30 07:27] LABS: BANDS 10 % (0-1); LYMPHS 6 % (21-51); MONO 2 % (1-9)
[2016-12-30 07:28] LABS: HYPOCHROM 1+; LARGE PLATELETS 1+
[2016-12-30] MEDS: JANUVIA PO SCH (08:38)
[2016-12-30] MEDS: RANEXA PO SCH ×2 (08:38→20:11)
[2016-12-30] MEDS: ZOLOFT PO SCH (08:38)
[2016-12-30] MEDS: DECADRON PO SCH ×2 (08:38→20:12)
[2016-12-30] MEDS: FERROUS SULFATE PO SCH ×2 (08:38→20:11)
[2016-12-30] MEDS: PROTONIX PO SCH (08:38)
[2016-12-30] MEDS: MEGACE PO SCH (08:38)
[2016-12-30] MEDS: ASPIRIN PO SCH (08:38)
[2016-12-30] MEDS ORDERED: SODIUM CHLORIDE 0.9% 10 ML ONE (09:06)
--- NOTE | 2016-12-30 10:00 | PROGRESS NOTE ---
DATE: 12/30/2016 SUBJECTIVE: Mr. Valadez reports he is doing well. He has no fevers. He does not think his cough has changed significantly. He is not having any hemoptysis or chest pain. OBJECTIVE: Vital signs: On physical examination, he is afebrile. Heart rate is 68, blood pressure 111/61. General: No acute distress. Cardiovascular: He sounds to be in a regular rate and rhythm. I do not hear any murmurs. He has no S3. He has no lower extremity edema. Chest: Exam is clear bilaterally. He has no increased work of breathing. Abdomen: Soft, nontender, nondistended. He has no obvious organomegaly. PERTINENT DATA: Labs show white count of 31.2 which is up from his baseline of around 20 the last 3 days. He has a hematocrit of 34, platelet count is 348. He has 68% segmented and 10% neutrophils. Sodium 137, potassium 4.7, BUN 24, creatinine 0.7. ASSESSMENT: 1. Non-ST elevation myocardial infarction in a patient with a history of ischemic cardiomyopathy. 2. Lung carcinoma. 3. Elevated white count. PLAN: I will refer for a PA and lateral chest x-ray. He has had an elevated white count. He is on steroids, but the dose has not changed from his previous home dose. I am unclear exactly why he has such a distinct jump from today compared to the last 3 days. Again, PA and lateral chest x- ray will be obtained. I will stop his nitroglycerin paste and place him on 2.5 mg of amlodipine daily. We will continue with his antianginals in the form of Ranexa and metoprolol. We will continue statin therapy. Heparin has been discontinued as far as the heparin drip. Currently he is not on any sort of prophylactic medication for DVTs. I will add in daily Lovenox. cc: Osbaldo Boothe MD
--- NOTE | 2016-12-30 10:50 | Diag Imaging Result Doc PS360 ---
EXAM: CHEST-2 VIEWS HISTORY: possible pneumonia, elev WBC, lung CA TECHNIQUE: COMPARISON: 12/27/2016 FINDINGS: Sternal wires are present. Although the dominant cavity in the mid left lung is less apparent on the frontal view, it does not appear changed on the lateral view. There are infiltrates throughout the upper lobe and there is apical pleural thickening. Heart is not enlarged. No definite pleural effusions. There is scarring in the right apex and right base. IMPRESSION: No interval improvement. Electronically signed by Isaiah Lowery 12/30/2016 10:48 AM
[2016-12-30] MEDS ORDERED: LOVENOX SUBQ ONE (11:48)
--- NOTE | 2016-12-30 13:00 | ECHO REPORT ---
ORDER DATE: 12/30/2016 INTERPRETING PHYSICIAN: Dr. Marcell Camp ECHOCARDIOGRAPHIC MEASUREMENTS: Interventricular septum: 1.5 cm. Left ventricular posterior wall: 1.8 cm. Diastolic diameter: 5.1 cm. Left atrium: 3.6 cm. Aortic root: 3.8 cm. SUMMARY OF THE 2-DIMENSIONAL IMAGIN. Normal left ventricular cavity size with severely reduced systolic function. There is a concentric left ventricular hypertrophy. Estimated ejection fraction of 20-25%. There is severe global hypokinesis. 2. Aortic valve leaflets are trileaflet. Mitral valve was normal. There is mitral annular calcification. Tricuspid valve was normal. There is moderate mitral regurgitation. 3. There is no aortic stenosis. There is trivial aortic regurgitation. There is mild tricuspid regurgitation. Peak velocity across the tricuspid valve was less than 2 m/sec. 4. There is no pericardial effusion or obvious intracardiac mass or thrombus. cc: MD Osbaldo Sandra MD
--- NOTE | 2016-12-30 14:20 | PROGRESS NOTE ---
DATE: 12/30/2016 SUBJECTIVE: The patient is resting comfortably in bed. He has no complaints. He states that he is no longer coughing up blood. OBJECTIVE: Vital Signs: Temperature 98 degrees, blood pressure 100/53, heart rate 71, respirations 16, and O2 saturation is 96% on room air. General: This is an elderly male, lying in bed in no acute distress. Head: Normocephalic, atraumatic. Heart: S1 and S2 normal. Regular rate and rhythm. Lungs: Equal air entry bilaterally. No crackles. No rales. Abdomen: Positive bowel sounds. Soft, nontender, nondistended. Extremities: No edema. No cyanosis. No calf tenderness. Neurologic: The patient is alert and oriented x3. LABORATORIES: White blood cell count 31, hemoglobin 10, hematocrit 34, platelets 348,000. Sodium 137, potassium 4.7, chloride 100, CO2 of 26, BUN 24, creatinine 0.7, glucose 119 , calcium 8.8. ASSESSMENT AND PLAN: 1. Dzr-TL-ywhoystrf myocardial infarction. Continue on the current cardiac medications. 2. Acute distal left common femoral vein deep venous thrombosis. The patient's heparin drip was discontinued. We will give the patient a dose of full-dose Lovenox today. Will defer to the oncologist regarding further anticoagulation. 3. Leukocytosis. The patient's white blood cell count has almost doubled since yesterday. The patient is afebrile and his chest x-ray from this morning does not reveal anything new. Will consult Dr. Dejan Joyner for further antibiotic recommendations. 4. Chronic bronchitis with possible pneumonia. Continue on IV antibiotic therapy. Infectious Disease has been consulted. 5. Anemia of chronic disease. The patient's hemoglobin and hematocrit are stable. 6. Diabetes mellitus, type 2. Continue on sliding scale insulin. 7. Situational depression. Continue on Zoloft. 8. Lung cancer. It has been recommended by the director of category management and spiral machine operator that the patient be considered for hospice care. Will defer this discussion to the patient's oncologist. 9. Disposition: The patient states that he lives alone at home. He states that he does not have any children. He plans to return home upon discharge and is interested in home health services. Will ask respiratory therapy to perform a home O2 evaluation to determine whether the patient would qualify for home oxygen. 10. Will consult physical therapy. cc: Eli Fernando MD MTDD
--- NOTE | 2016-12-30 15:03 | CONSULTATION ---
DATE OF CONSULTATION: 12/30/2016 CONCLUSION: The patient has a gram-negative goapl pneumonia. In the left lung there is an associated cavity as well. The patient also has developed marked leukocytosis. This could be due to his pneumonia. In addition, he is on dexamethasone and that too could be causing or contributing to his leukocytosis as well. RECOMMENDATIONS: I agree with treating with Zosyn pending the identification of the organism in the patient's sputum. I have discontinued vancomycin. DISCUSSION: The patient was admitted to the hospital. He was having an acute myocardial infarction. The patient had chest pain. He was not complaining of cough or shortness of breath. His chest x-ray shows left lung infiltrates with cavity. The patient's CBC shows a white count of 31,280. Hemoglobin 10.2 and platelet count 348,000. Patient's creatinine is 0.7. The GFR is greater than 60. Sputum is growing a gram-negative gopal. Blood cultures are sterile. Urine culture is mixed. PAST MEDICAL HISTORY/REVIEW OF SYSTEMS: Eyes and Ears: Denies difficulty hearing or seeing. Neck: No stiffness. Respiratory: Dyspnea on exertion. He occasionally coughs but there is not much in the way of sputum. Cardiac: No chest pain or palpitations. GI: No nausea, vomiting, or diarrhea. Bones, joints, muscles: No joint pain or myalgias. Endocrine: Patient has diabetes but not thyroid disease. Neurologic: No seizures. No motor or sensory loss. Hematologic: The patient does have anemia. He does not have a bleeding tendency. Genitourinary: No dysuria or flank pain. The remainder of the patient's review of systems was completed and was negative. Integument: No rash. PREVIOUS HOSPITALIZATIONS AND OPERATIONS: He has had a right lobectomy for cancer of the lung. He has also had coronary artery bypass grafting. MEDICAL DISEASES: Positive for diabetes mellitus, hypertension, coronary artery disease, stroke, hyperlipidemia, COPD, and lung cancer. The patient now has had a myocardial infarction. Gastroesophageal reflux disease and longwall foreman use of dexamethasone. INFECTIOUS DISEASE HISTORY: Negative for pneumonia and UTI. FAMILY HISTORY: Positive for diabetes mellitus, myocardial infarction, and cancer. SOCIAL HISTORY: [place] He sm[place] cigarettes. He does not drink alcoholic beverages or abuse drugs. He is a . He lives alone. ALLERGIES: His chart lists no known drug allergies. HOME MEDICATIONS: 1. Temazepam. 2. Januvia. 3. Sertraline. 4. Pantoprazole. 5. Megestrol. 6. Dexamethasone. 7. Plavix. 8. Albuterol inhaler. 9. Lipitor. PHYSICAL EXAMINATION: Vital Signs: Temperature is 98.3 degrees, pulse 71, respirations 16, blood pressure 100/53. Patient weighs 117 pounds. General: This is a chronically ill and somewhat malnourished elderly male. He is in no acute distress. Head, eyes, ears, nose, and throat: He can hear my spoken words. He can see near objects. He is edentulous. No drainage coming from the nose or ears. Neck: No meningismus. Thorax: Increased AP diameter of the chest. Lungs: There were some rales heard in the left lung. The right lung was clear. Thorax: There was an increased AP diameter to the chest. The patient had a healed thoracotomy scar on the right side. Cardiovascular: Heart rate is regular. Peripheral pulses were diminished. Abdomen: Soft and nontender. Neurologic: The patient is awake. He can move his extremities. There is no tremor. His sensation is in intact to touch. His memory, as regarding his medical history is slightly diminished. Integument: No rash noted. The patient's IV sites in his arms are not erythematous or swollen. Thank you for the consult. cc: Dejan Joyner MD
[2016-12-30] MEDS: ELIQUIS PO SCH (20:11)
[2016-12-30] MEDS: RESTORIL PO SCH (20:11)
[2016-12-30] MEDS: LIPITOR PO SCH (20:11)
[2016-12-31] MEDS: NITROGLYCERIN TOP SCH (04:49)
[2016-12-31] MEDS: ZOSYN 3.375 GM/NS 3.375 GM/50 ML IVPB IV SCH ×4 (04:49→19:59)
[2016-12-31] MEDS: LOPRESSOR PO SCH ×3 (04:49→19:59)
[2016-12-31 05:15] LABS: EOS# 0.06 X1000 (0.0-0.7); EOS% 0.2 % (0.0-10.0); HEMATOCRIT 32.1 % (42.0-52.0); HEMOGLOBIN 9.8 g/dL (14.0-18.0); LYMPH% 6.2 % (20.5-51.1); MANUAL DIFF NEEDED? YES; MCH 28.3 PG (27-31); MCHC 30.5 g/dL (33-37); MCV 92.8 FL (81-99); MONO# 1.97 X1000 (0.11-0.59); MONO% 5.8 % (1.7-9.3); MPV 9.8 FL (7.4-10.4); PLT 368 X1000 (130-400); RBC 3.46 XMIL (4.7-6.1)
[2016-12-31 05:23] LABS: AGAP 10; BUN 29 mg/dL (8-22); CALCIUM 9.1 mg/dL (8.8-10.2); CHLORIDE 97 mmol/L (98-107); COSMO 276; POTASSIUM 4.6 mmol/L (3.5-5.1); SODIUM 133 mmol/L (136-145); TCO2 26 mmol/L (25-35)
[2016-12-31] MEDS: HUMULIN R SUBQ SCH ×4 (06:35→20:02)
[2016-12-31 07:11] LABS: BANDS 1 % (0-1); LYMPHS 13 % (21-51); MONO 5 % (1-9)
[2016-12-31] MEDS: RANEXA PO SCH ×2 (08:37→19:59)
[2016-12-31] MEDS: FERROUS SULFATE PO SCH ×2 (08:37→19:59)
[2016-12-31] MEDS: JANUVIA PO SCH (08:37)
[2016-12-31] MEDS: PROTONIX PO SCH (08:37)
[2016-12-31] MEDS: NORVASC PO SCH (08:37)
[2016-12-31] MEDS: DECADRON PO SCH ×2 (08:37→19:59)
[2016-12-31] MEDS: ZOLOFT PO SCH (08:38)
[2016-12-31] MEDS: MEGACE PO SCH (08:38)
[2016-12-31] MEDS: ELIQUIS PO SCH ×2 (08:38→19:59)
[2016-12-31] MEDS ORDERED: LOVENOX SUBQ SCH (09:00)
--- NOTE | 2016-12-31 14:06 | PROGRESS NOTE ---
DATE: 12/31/2016 PRESENT ILLNESS: The patient has Klebsiella pneumonia. There is marked leukocytosis which, in part, could be due to the fact that the patient is on Decadron. MEDICATIONS: The patient currently is receiving Zosyn. PHYSICAL EXAMINATION: Vital Signs: Temperature is 98.7 degrees, pulse 71, respirations 18, blood pressure 115/67. Generally, this is an ill-appearing elderly male. He is in no acute distress. Lungs clear to auscultation. Cardiovascular: Regular heart rate. Abdomen: Soft and nontender. Neurologic: He is alert. He can move his extremities. There is no tremor. LABORATORY DATA AND X-RAY: The CBC for today showed a white count of 34,120. Hemoglobin 9.8 and platelet count 368,000. Creatinine is 0.8. GFR is greater than 60. There is no new radiographic study. ASSESSMENT AND PLAN: My plan is to continue with Zosyn. I am going to repeat his CBC and BMP tomorrow and if the white count is decreasing, I think it would be reasonable to send the patient home on p.o. Levaquin and then I can follow him up and see him in my office. The patient's comorbidities include diabetes mellitus, COPD, lung cancer, gastroesophageal reflux disease, and cigarette smoking. cc: Dejan Joyner MD
--- NOTE | 2016-12-31 15:57 | PROGRESS NOTE ---
DATE: 12/31/2016 SUBJECTIVE: He reports his breathing is doing well. He is not having any fevers, no coughs. OBJECTIVE: Vital Signs: He is afebrile, heart rates in the 60s to 70s, his blood pressure most recently is 115/67. General: No acute distress. Cardiovascular: He sounds to be in a regular rate and rhythm. He has no murmurs, no S3. He has no lower extremity edema. Chest exam: Has some relative decrease in breath sounds on the right side but otherwise clear. Abdomen: Soft, nontender, nondistended. No obvious organomegaly. Skin Exam: Warm and dry throughout. PERTINENT DATA: His white count is 34, which is up from 31. Hematocrit is 32, platelet count is 368,000. Sodium 133, potassium is 4.6, BUN 29, creatinine 0.8. He had Klebsiella isolated from his sputum on the of this month. ASSESSMENT: 1. Dlp-IW-shyxpoius myocardial infarction. 2. Lung cancer. 3. Klebsiella pneumonia. PLAN: He is currently on antibiotics. We have adjusted his medications. I have placed him on Ranexa. Here he is on metoprolol. We will continue on these medications including the apixaban at 5 mg b.i.d., and amlodipine. He is on multiple antianginals. The apixaban was started for a DVT. From a cardiovascular standpoint I believe he is stable for discharge. cc: Osbaldo Boothe MD
--- NOTE | 2016-12-31 16:37 | PROGRESS NOTE ---
DATE: 12/31/2016 SUBJECTIVE: The patient is resting comfortably in bed. He has no complaints. He states that he wants to go home. OBJECTIVE: Vital Signs: Temperature 98.7 degrees, blood pressure 116/67, heart rate 71, respirations 18, O2 saturations 100% on room air. General: This is an elderly male, lying in bed, in no acute distress. Head: Normocephalic, atraumatic. Heart: S1, S2. Normal. Regular rate and rhythm. Lungs: Clear to auscultation bilaterally. Abdomen: Positive bowel sounds. Soft, nontender, nondistended. Extremities: No edema. No cyanosis. Neurologic: The patient is alert oriented x3. LABORATORY DATA: White blood cell count 34, hemoglobin 9.8, hematocrit 32, platelets 368,000. Sodium 133, potassium 4.6, chloride 97, CO2 26, BUN 29, creatinine 0.8, glucose 174. ASSESSMENT AND PLAN: 1. Non ST-elevation myocardial infarction. Continue on the current cardiac medications. 2. Pneumonia secondary to Klebsiella. Continue on the current IV antibiotic regimen. 3. Acute distal left common femoral vein deep vein thrombosis. The patient is now on Eliquis. 4. Leukocytosis. Worse today. This may be the effects of steroids. Continue with IV antibiotic therapy. 5. Situational depression. Continue on Zoloft. 6. Diabetes mellitus type 2. Continue on sliding scale insulin. 7. Anemia of chronic disease. Stable. 8. Lung cancer. Aware. Management as per the oncologist. 9. Disposition: The patient will be stable for discharge home tomorrow with home health services. cc: Eli Fernando MD
[2016-12-31] MEDS: RESTORIL PO SCH (19:59)
[2016-12-31] MEDS: LIPITOR PO SCH (19:59)
[2017-01-01] MEDS: ZOSYN 3.375 GM/NS 3.375 GM/50 ML IVPB IV SCH (03:26)
[2017-01-01 05:39] LABS: AGAP 11; BUN 29 mg/dL (8-22); CALCIUM 8.6 mg/dL (8.8-10.2); CHLORIDE 97 mmol/L (98-107); COSMO 275; SODIUM 133 mmol/L (136-145); TCO2 25 mmol/L (25-35)
[2017-01-01 05:40] LABS: HEMOGLOBIN 9.6 g/dL (14.0-18.0); MCH 28.7 PG (27-31); MCV 92.8 FL (81-99); MPV 9.8 FL (7.4-10.4); PLT 417 X1000 (130-400); RBC 3.34 XMIL (4.7-6.1)
[2017-01-01] MEDS: HUMULIN R SUBQ SCH ×4 (06:03→20:42)
[2017-01-01 06:53] LABS: BANDS 1 % (0-1); LYMPHS 13 % (21-51); MONO 7 % (1-9)
[2017-01-01 07:31] LABS: MANUAL DIFF NEEDED? YES
--- NOTE | 2017-01-01 08:28 | PROGRESS NOTE ---
DATE: 01/01/2017 PRESENT ILLNESS: The patient has Klebsiella pneumonia. He also has a marked leukocytosis. The leukocytosis could be caused by the patient's pneumonia and/or the fact that the patient is on Decadron in addition to receiving his antibiotic, namely Zosyn. MEDICATION: As mentioned above the patient is on Zosyn and steroids. PHYSICAL EXAMINATION: Vital Signs: Temperature is 97.5 degrees, pulse 66, respirations 18, blood pressure 111/59. General Appearance: Generally this is a chronically ill- appearing elderly male, who is in no acute distress. Cardiovascular: Heart rate is regular. Lungs: There were few rhonchi on both sides. Cardiovascular: Heart rate was regular. Abdomen: Soft and nontender. Neurologic: Patient is alert. He can move his extremities. He is able to talk. He has been ambulating in his wound. LAB AND X-RAY: CBC today shows a white count that is up to 49,580, hemoglobin 9.6, and platelet count 417,000. Patient's sputum grew Klebsiella. Creatinine 0.8. GFR is greater than 60. I do not have any new radiographic studies. ASSESSMENT AND PLAN: The patient has Klebsiella pneumonia. The white count remains high. I am going to stop Zosyn and start the patient on Rocephin. I think until his white count starts coming down, we should keep him in the hospital on IV antibiotics. COMORBIDITIES: Include diabetes mellitus, chronic obstructive pulmonary disease , lung cancer, gastroesophageal reflux disease, and cigarette smoking. cc: Dejan Joyner MD MTDD
[2017-01-01] MEDS: MEGACE PO SCH (08:59)
[2017-01-01] MEDS: FERROUS SULFATE PO SCH ×2 (08:59→20:37)
[2017-01-01] MEDS: DECADRON PO SCH ×2 (08:59→20:37)
[2017-01-01] MEDS: NORVASC PO SCH (08:59)
[2017-01-01] MEDS: JANUVIA PO SCH (08:59)
[2017-01-01] MEDS: LOPRESSOR PO SCH ×2 (08:59→20:37)
[2017-01-01] MEDS: ZOLOFT PO SCH (08:59)
[2017-01-01] MEDS: ROCEPHIN 1 GM/NS 1 GM/50 ML IVPB IV SCH ×2 (08:59→20:37)
[2017-01-01] MEDS: RANEXA PO SCH ×2 (09:00→20:37)
[2017-01-01] MEDS: ELIQUIS PO SCH ×2 (09:00→20:37)
[2017-01-01] MEDS: PROTONIX PO SCH (09:00)
--- NOTE | 2017-01-01 09:09 | PROGRESS NOTE ---
DATE: 01/01/2017 PRESENT ILLNESS: The patient has lung cancer. He also has pneumonia. His sputum is growing Klebsiella, thus, he has a Klebsiella pneumonia. His white count continues to increase. Today, it was up to 49,580. Exactly why he is having such leukocytosis is uncertain to me. He is on Decadron which could contribute to leukocytosis, however, he was on these medications as an outpatient, and he did not have such a high white count. MEDICATIONS: He is on Zosyn. PHYSICAL EXAMINATION: Vital Signs: Temperature is 97.5 degrees, pulse 66, respirations 18, blood pressure 111/59. Generally, this is a chronically ill-appearing, elderly male, who is in no acute distress. Lungs: There were bilateral rhonchi. Cardiovascular: Heart rate is regular. Abdomen is soft and nontender. The patient's IV sites were not erythematous or swollen. LAB AND X-RAY: CBC-WBC 49.58, hgb 9.6, platelets 417K. Creatinine 0.8. GFR > 60. No radiographic study today. ASSESSMENT AND PLAN: Patient has Klebsiella pneumonia. He continues to have a rise in his white count, the exact etiology of which is uncertain to me. My plan now is that I have switched the patient from Zosyn to Rocephin, and on 01/03/2017, I have ordered a CBC. A BMP already has been ordered by Dr. Eli Fernando and I also ordered a chest x-ray. Hopefully, the white count will be coming down and, if it is, then the patient could be discharged on Levaquin. The patient's comorbidities include diabetes mellitus, COPD, lung cancer, gastroesophageal reflux disease, and cigarette smoking. cc: Dejan Joyner MD [facility]
--- NOTE | 2017-01-01 19:08 | PROGRESS NOTE ---
DATE: 01/01/2017 SUBJECTIVE: The patient is sitting up in bed, eating breakfast. No acute events noted overnight. OBJECTIVE: Vital Signs: Temperature 98.7, blood pressure 118/65, heart rate 74, respirations 18, O2 saturations 100% on room air. General: This is an elderly male, lying in bed, in no acute distress. Head: Normocephalic, atraumatic. Heart: S1, S2 normal. Regular rate and rhythm. Lungs: Equal air entry bilaterally. No crackles no rales. Abdomen: Positive bowel sounds. Soft, nontender, nondistended. Extremities: No edema. No cyanosis. Neurologic: The patient is alert and oriented x3. LABS: White blood cell count 49, hemoglobin 9.6, hematocrit 31, platelets 417. Sodium 133, potassium 5, chloride 97, CO2 of 25, BUN 29, creatinine 0.8, glucose 153. Calcium 8.6. ASSESSMENT AND PLAN: 1. Non ST-elevation myocardial infarction. Continue on the current cardiac medications. 2. Pneumonia. Continue on antibiotic therapy. The patient's antibiotic has been switched to Rocephin and the Zosyn has been discontinued due to the persistent elevation in the white count. Continue with bronchodilator therapy. 3. Severe leukocytosis. The etiology of the patient's leukocytosis is unknown. The patient's antibiotic has been switched. We will monitor the patient's counts closely. 4. Acute distal left common femoral vein, deep venous thrombosis. Continue on Eliquis. 5. Diabetes mellitus type 2. Continue on sliding scale insulin. 6. Situational depression. Continue on Zoloft. 7. Lung cancer. Aware. 8. Anemia of chronic disease. Stable. cc: Eli Fernando MD
[2017-01-01] MEDS: RESTORIL PO SCH (20:37)
[2017-01-01] MEDS: LIPITOR PO SCH (20:37)
[2017-01-02 05:56] LABS: AGAP 11; BUN 31 mg/dL (8-22); CALCIUM 9.1 mg/dL (8.8-10.2); CHLORIDE 96 mmol/L (98-107); COSMO 278; POTASSIUM 4.7 mmol/L (3.5-5.1); SODIUM 133 mmol/L (136-145); TCO2 26 mmol/L (25-35)
[2017-01-02] MEDS: HUMULIN R SUBQ SCH ×4 (06:12→20:21)
[2017-01-02] MEDS: NORVASC PO SCH (08:10)
[2017-01-02] MEDS: ELIQUIS PO SCH ×2 (08:11→20:19)
[2017-01-02] MEDS: PROTONIX PO SCH (08:11)
[2017-01-02] MEDS: LOPRESSOR PO SCH ×2 (08:11→20:19)
[2017-01-02] MEDS: MEGACE PO SCH (08:11)
[2017-01-02] MEDS: ZOLOFT PO SCH (08:11)
[2017-01-02] MEDS: DECADRON PO SCH ×2 (08:11→20:19)
[2017-01-02] MEDS: RANEXA PO SCH ×2 (08:11→20:19)
[2017-01-02] MEDS: FERROUS SULFATE PO SCH ×2 (08:11→20:19)
[2017-01-02] MEDS: JANUVIA PO SCH (08:11)
[2017-01-02] MEDS: ROCEPHIN 1 GM/NS 1 GM/50 ML IVPB IV SCH ×2 (08:11→20:21)
[2017-01-02 08:19] LABS: EOS# 0.01 X1000 (0.0-0.7); HEMATOCRIT 31.1 % (42.0-52.0); HEMOGLOBIN 9.6 g/dL (14.0-18.0); LYMPH# 3.86 X1000 (1.2-3.4); LYMPH% 6.7 % (20.5-51.1); MANUAL DIFF NEEDED? YES; MCH 29.4 PG (27-31); MCHC 30.9 g/dL (33-37); MCV 95.4 FL (81-99); MONO# 3.59 X1000 (0.11-0.59); MONO% 6.2 % (1.7-9.3); NEUT% 87.1 % (42.2-75.2); PLT 404 X1000 (130-400); RBC 3.26 XMIL (4.7-6.1)
[2017-01-02 09:49] LABS: BANDS 10 % (0-1); LYMPHS 10 % (21-51); MONO 10 % (1-9); NRBC 2 % (0-0)
--- NOTE | 2017-01-02 11:24 | Diag Imaging Result Doc PS360 ---
EXAM: CHEST-2 VIEWS INDICATION: abnormal exam TECHNIQUE: 2 views COMPARISON: 12/30/2016 FINDINGS: Extensive emphysematous changes are again noted. Infiltrates throughout the left upper lobe are approximately stable. There is a stable cavitary lesion in the left upper lobe. No new consolidation is appreciated. Cardiac silhouette is stable. IMPRESSION: Stable chest. Electronically signed by Los Allen 01/02/2017 11:22 AM
--- NOTE | 2017-01-02 15:26 | PROGRESS NOTE ---
DATE: 01/02/2017 SUBJECTIVE: The patient is resting comfortably in bed. He has no complaints. No acute events noted overnight. OBJECTIVE: Vital Signs: Temperature 98.1 degrees, blood pressure 102/57, heart rate 67, respiratory rate 18, O2 saturations 96% on room air. General: This is an elderly male, sitting at the edge of the bed, in no acute distress. Head: Normocephalic atraumatic. Heart: S1, S2. Normal. Regular rate and rhythm. Lungs: Equal air entry bilaterally. No crackles. No rales. Abdomen: Positive bowel sounds. Soft, nontender, nondistended. Extremities: No edema. No cyanosis. No calf tenderness. Neurologic: The patient is alert and oriented x3. LABS: White blood cell count 57.4, hemoglobin 9.6, hematocrit 31, platelets 404,000. Sodium 133, potassium 4.7, chloride 96, CO2 26, BUN 31, creatinine 0.8, glucose 181. ASSESSMENT AND PLAN: 1. Pneumonia secondary to Klebsiella. Continue on Rocephin. 2. Leukocytosis. The patient's white blood cell count continues to rise. Will continue to monitor. Continue with antibiotic therapy. 3. Diabetes mellitus type 2. Continue on Januvia plus sliding scale insulin. 4. Acute distal left common femoral vein deep venous thrombosis. Continue on Eliquis. 5. Non ST-elevation myocardial infarction. Continue on the current cardiac medications. 6. Situational depression. Continue on Zoloft. 7. Lung cancer. Management as per the oncologist. 8. Anemia of chronic disease. Stable. 9. Constipation. Will start the patient on scheduled laxative therapy. 10. Continue with physical therapy. cc: Eli Fernando MD
[2017-01-02] MEDS: LIPITOR PO SCH (20:19)
[2017-01-02] MEDS: RESTORIL PO SCH (20:19)
[2017-01-02] MEDS: DULCOLAX PR SCH (20:22)
[2017-01-02] MEDS: MIRALAX PO SCH (20:23)
[2017-01-03 06:00] LABS: EOS# 0.02 X1000 (0.0-0.7); HEMATOCRIT 31.4 % (42.0-52.0); HEMOGLOBIN 9.8 g/dL (14.0-18.0); LYMPH# 3.79 X1000 (1.2-3.4); LYMPH% 6.2 % (20.5-51.1); MANUAL DIFF NEEDED? YES; MCH 28.9 PG (27-31); MCHC 31.2 g/dL (33-37); MCV 92.6 FL (81-99); MONO# 3.82 X1000 (0.11-0.59); MONO% 6.2 % (1.7-9.3); MPV 9.6 FL (7.4-10.4); PLT 406 X1000 (130-400); RBC 3.39 XMIL (4.7-6.1)
[2017-01-03] MEDS: HUMULIN R SUBQ SCH ×4 (06:17→23:36)
[2017-01-03 06:26] LABS: AGAP 14; BUN 37 mg/dL (8-22); CALCIUM 8.9 mg/dL (8.8-10.2); CHLORIDE 94 mmol/L (98-107); COSMO 278; POTASSIUM 4.8 mmol/L (3.5-5.1); SODIUM 132 mmol/L (136-145); TCO2 24 mmol/L (25-35)
[2017-01-03 06:37] LABS: BANDS 2 % (0-1); LYMPHS 7 % (21-51); MONO 3 % (1-9); POLYCHROM OCCASIONAL
--- NOTE | 2017-01-03 08:34 | Diag Imaging Result Doc PS360 ---
EXAM: CHEST-2 VIEWS INDICATION: pneumonia TECHNIQUE: 2 views COMPARISON: 01/02/2017 FINDINGS: Infiltrate and the cavitary lesion in the left upper lobe are stable. COPD changes and fibrosis are again noted. No new consolidation is appreciated. Cardiac silhouette is stable. IMPRESSION: Stable chest. Electronically signed by Los Allen 01/03/2017 8:31 AM
[2017-01-03] MEDS: ELIQUIS PO SCH ×2 (08:55→20:30)
[2017-01-03] MEDS: JANUVIA PO SCH (08:55)
[2017-01-03] MEDS: ROCEPHIN 1 GM/NS 1 GM/50 ML IVPB IV SCH ×2 (08:55→20:31)
[2017-01-03] MEDS: ZOLOFT PO SCH (08:56)
[2017-01-03] MEDS: PROTONIX PO SCH (08:56)
[2017-01-03] MEDS: RANEXA PO SCH ×2 (08:56→20:31)
[2017-01-03] MEDS: LOPRESSOR PO SCH ×2 (08:56→20:31)
[2017-01-03] MEDS: NORVASC PO SCH (08:56)
[2017-01-03] MEDS: MEGACE PO SCH (08:56)
[2017-01-03] MEDS: FERROUS SULFATE PO SCH ×2 (08:56→20:31)
[2017-01-03] MEDS: DECADRON PO SCH ×2 (08:57→20:30)
[2017-01-03] MEDS ORDERED: SAMSCA PO ONE (09:00)
--- NOTE | 2017-01-03 16:03 | PROGRESS NOTE ---
DATE: 01/03/2017 SUBJECTIVE: The patient is sitting up in bed, in no acute distress. He states that he wants to go home. He has no complaints. OBJECTIVE: Vital Signs: Temperature 98 degrees, blood pressure 120/62, heart rate 69, respirations 18, O2 saturation is 100% on room air. General: This is an elderly male, lying in bed, in no acute distress. Head: Normocephalic, atraumatic. Heart: S1, S2. Normal. Regular rate and rhythm. Lungs: Clear to auscultation bilaterally. No crackles. No rales. Abdomen: Positive bowel sounds. Soft, nontender, nondistended. Extremities: No edema. No cyanosis. No calf tenderness. Neurological: Patient is alert and oriented x3. LABS: White blood cell count 61, hemoglobin 9.8, hematocrit 31, platelets 406,000. Sodium 132, potassium 4.8, chloride 94, CO2 24, BUN 37, creatinine 0.8, glucose 189. ASSESSMENT AND PLAN: 1. Pneumonia secondary to Klebsiella. Continue on IV Rocephin as directed by Dr. Joyner. 2. Persistent leukocytosis. The patient's white blood cell count continues to rise daily. Will await further recommendations from the photo mask inspector. We will continue on antibiotic therapy at this time. 3. Diabetes mellitus type 2. Continue on Januvia. 4. Acute distal left common femoral vein deep venous thrombosis. Continue on Eliquis. 5. Owj-CS-xfcyhlumb myocardial infarction. Continue on the current cardiac medications. 6. Situational depression. Continue on Zoloft. 7. Lung cancer. Management as per the oncologist. 8. Anemia of chronic disease. Stable. 9. Continue with physical therapy. cc: Eli Fernando MD
[2017-01-03] MEDS: MIRALAX PO SCH ×2 (16:51→23:40)
[2017-01-03] MEDS: RESTORIL PO SCH (20:31)
[2017-01-03] MEDS: LIPITOR PO SCH (20:31)
[2017-01-03] MEDS: DULCOLAX PR SCH (23:35)
[2017-01-04 05:46] LABS: BASO% 0.1 % (0.0-0.8); EOS# 0.01 X1000 (0.0-0.7); HEMOGLOBIN 9.9 g/dL (14.0-18.0); LYMPH# 4.09 X1000 (1.2-3.4); LYMPH% 5.9 % (20.5-51.1); MANUAL DIFF NEEDED? YES; MCH 29.6 PG (27-31); MCHC 30.9 g/dL (33-37); MCV 95.8 FL (81-99); MONO# 4.35 X1000 (0.11-0.59); MONO% 6.3 % (1.7-9.3); MPV 9.6 FL (7.4-10.4); NEUT% 87.7 % (42.2-75.2); PLT 370 X1000 (130-400); RBC 3.34 XMIL (4.7-6.1)
[2017-01-04 05:56] LABS: AGAP 11; BUN 41 mg/dL (8-22); CALCIUM 9.1 mg/dL (8.8-10.2); CHLORIDE 98 mmol/L (98-107); COSMO 281; POTASSIUM 4.6 mmol/L (3.5-5.1); SODIUM 134 mmol/L (136-145); TCO2 25 mmol/L (25-35)
[2017-01-04] MEDS: HUMULIN R SUBQ SCH ×4 (06:06→20:21)
[2017-01-04] MEDS ORDERED: VANCOMYCIN IV PER PHARMACY MISC SCH (07:15)
--- NOTE | 2017-01-04 07:33 | PROGRESS NOTE ---
DATE: 01/04/2017 SUBJECTIVE: The patient has a pneumonia and an extreme leukocytosis. Today, the patient told me that he is having loose stools. I think he may have developed Clostridium difficile-associated diarrhea. MEDICATION: Patient is getting IV Rocephin. RECOMMENDATIONS: I have ordered a stool for Clostridium difficile toxin, and also have started the patient on p.o. vancomycin. PHYSICAL EXAM: Vital signs-Temp 98.2, Pulse 67, RR 20, BP 130/65. General-ill appearing elderly male in no acute distress. Lungs-CTA. CV-regular HR. Abdomen-soft and nontender. Neurological-alert, moves all extremities IMAGING AND LABORATORY DATA: Chest x-ray shows left upper lobe infiltrate and cavity is better. Creatinine 0.8. GFR is greater than 60. Sputum grew Klebsiella. CBC shows a white count now up to 68,770, hemoglobin 9.9, and platelet count 370,000. PLAN: My plan on this patient is to send a stool for Clostridium difficile toxin, and empirically I have started him on p.o. vancomycin elixir. I will continue Rocephin. COMORBIDITIES: The patient's comorbidities include diabetes mellitus, chronic obstructive pulmonary disease, lung cancer, gastroesophageal reflux disease, cigarette smoking, and being elderly. cc: Dejan Joyner MD MTDD
[2017-01-04] MEDS: ROCEPHIN 1 GM/NS 1 GM/50 ML IVPB IV SCH ×2 (07:57→20:06)
[2017-01-04] MEDS: DECADRON PO SCH (08:02)
[2017-01-04] MEDS: PROTONIX PO SCH (08:02)
[2017-01-04] MEDS: RANEXA PO SCH ×2 (08:02→20:07)
[2017-01-04] MEDS: FERROUS SULFATE PO SCH ×2 (08:02→20:07)
[2017-01-04] MEDS: NORVASC PO SCH (08:02)
[2017-01-04] MEDS: JANUVIA PO SCH (08:02)
[2017-01-04] MEDS: ZOLOFT PO SCH (08:02)
[2017-01-04] MEDS: ELIQUIS PO SCH ×2 (08:02→20:07)
[2017-01-04] MEDS: MIRALAX PO SCH ×2 (08:03→20:07)
[2017-01-04] MEDS: LOPRESSOR PO SCH ×2 (08:03→20:07)
[2017-01-04] MEDS: MEGACE PO SCH (08:03)
[2017-01-04 08:45] LABS: BANDS 4 % (0-1); LYMPHS 12 % (21-51); MONO 4 % (1-9)
[2017-01-04] MEDS: VANCOMYCIN ORAL SOLN PO SCH ×3 (09:26→20:06)
[2017-01-04] MEDS: LEVAQUIN 750 MG/D5W 750 MG/150 ML IVPB IV SCH (16:26)
[2017-01-04 19:29] LABS: URINE CULTURE NEEDED? NO; URINE MICRO REVIEW NEEDED? NO; URINE SOURCE CLEAN CATCH
[2017-01-04 19:35] LABS: BILIRUBIN URINE NEGATIVE (NEGATIVE); BLOOD URINE NEGATIVE (NEGATIVE); COLOR YELLOW; GLUCOSE URINE NEGATIVE (NEGATIVE); LEUKOCYTES URINE NEGATIVE (NEGATIVE); NITRITE URINE NEGATIVE (NEGATIVE); PH URINE 6.5; PROTEIN URINE NEGATIVE (NEGATIVE); SP GRAVITY URINE 1.019; TURBIDITY URINE CLEAR (CLEAR); UROBILINOGEN URINE NORMAL (NORMAL)
[2017-01-04 19:37] LABS: UR EPITHELIAL CELLS <10 /HPF (<10); URINE BACTERIA NEGATIVE /HPF; URINE RBC <10 /HPF (<10); URINE WBC <10 /HPF (<10)
[2017-01-04] MEDS: LIPITOR PO SCH (20:08)
[2017-01-04] MEDS: RESTORIL PO SCH (20:19)
[2017-01-05] MEDS: VANCOMYCIN ORAL SOLN PO SCH ×3 (02:26→13:40)
[2017-01-05 05:17] LABS: EOS# 0.03 X1000 (0.0-0.7); HEMATOCRIT 31.4 % (42.0-52.0); HEMOGLOBIN 9.8 g/dL (14.0-18.0); LYMPH# 5.13 X1000 (1.2-3.4); LYMPH% 7.5 % (20.5-51.1); MANUAL DIFF NEEDED? YES; MCH 29.2 PG (27-31); MCHC 31.2 g/dL (33-37); MCV 93.5 FL (81-99); MONO# 4.57 X1000 (0.11-0.59); MONO% 6.7 % (1.7-9.3); MPV 9.1 FL (7.4-10.4); PLT 337 X1000 (130-400); RBC 3.36 XMIL (4.7-6.1)
[2017-01-05 05:40] LABS: AGAP 12; BUN 42 mg/dL (8-22); CALCIUM 8.7 mg/dL (8.8-10.2); CHLORIDE 97 mmol/L (98-107); COSMO 278; POTASSIUM 4.6 mmol/L (3.5-5.1); SODIUM 133 mmol/L (136-145); TCO2 24 mmol/L (25-35)
[2017-01-05 05:53] LABS: BANDS 12 % (0-1); LYMPHS 10 % (21-51); MONO 6 % (1-9); NRBC 1 % (0-0)
[2017-01-05] MEDS: HUMULIN R SUBQ SCH ×4 (06:00→21:54)
[2017-01-05] MEDS: VENTOLIN HFA INH PRN (07:00)
[2017-01-05] MEDS: ROCEPHIN 1 GM/NS 1 GM/50 ML IVPB IV SCH (09:44)
[2017-01-05] MEDS: LOPRESSOR PO SCH ×2 (09:46→20:55)
[2017-01-05] MEDS: MEGACE PO SCH (09:46)
[2017-01-05] MEDS: DECADRON PO SCH (09:46)
[2017-01-05] MEDS: FERROUS SULFATE PO SCH ×2 (09:46→20:55)
[2017-01-05] MEDS: JANUVIA PO SCH (09:46)
[2017-01-05] MEDS: RANEXA PO SCH ×2 (09:46→20:55)
[2017-01-05] MEDS: ZOLOFT PO SCH (09:46)
[2017-01-05] MEDS: PROTONIX PO SCH (09:46)
[2017-01-05] MEDS: NORVASC PO SCH (09:46)
[2017-01-05] MEDS: ELIQUIS PO SCH ×2 (09:46→20:55)
[2017-01-05] MEDS: MIRALAX PO SCH ×2 (09:49→20:55)
[2017-01-05] MEDS: LEVAQUIN 750 MG/D5W 750 MG/150 ML IVPB IV SCH (13:36)
--- NOTE | 2017-01-05 16:10 | PROGRESS NOTE ---
DATE: 01/05/2017 PRESENT ILLNESS: The patient has Klebsiella pneumonia. He also has an extremely high leukocytosis. The exact cause of the leukocytosis is somewhat uncertain. It should be noted that the patient last week may have had a shot of Neulasta which could have caused the elevation in the white count. MEDICATIONS: The patient is on Levaquin IV and p.o. vancomycin. Rocephin has been discontinued. PHYSICAL EXAMINATION: Vital Signs: Temperature is 98.1 degrees, pulse 64, respirations 26, blood pressure 110/67. General: This is an ill-appearing, elderly male. He is in no acute distress at this time. Lungs: Clear to auscultation. Cardiovascular: Regular heart rate. Abdomen: Soft and nontender. LAB AND X-RAY: There is no new radiographic studies. CBC today was high again with the white count being 68,570, hemoglobin 9.8, and platelet count 337,000. Creatinine is 0.7. GFR is greater than 60. The patient's stool for C. difficile toxin is negative but it was positive for C. difficile antigen. ASSESSMENT AND PLAN: Rocephin and p.o. Levaquin have been discontinued so the patient is only getting Levaquin as a single agent. The patient's assessment is that the leukocytosis could be secondary to Neulasta. The patient did have Klebsiella in his bronchial washings so there may be a component of pneumonia as well which is being treated with Levaquin. COMORBIDITIES: Diabetes mellitus, chronic obstructive pulmonary disease, lung cancer, gastroesophageal reflux disease, cigarette smoking and being elderly. cc: Dejan Joyner MD
[2017-01-05] MEDS: RESTORIL PO SCH (20:55)
[2017-01-05] MEDS: LIPITOR PO SCH (20:55)
[2017-01-06 05:20] LABS: BASO% 2.6 % (0.0-0.8); EOS# 0.11 X1000 (0.0-0.7); EOS% 0.2 % (0.0-10.0); HEMATOCRIT 31.5 % (42.0-52.0); HEMOGLOBIN 9.8 g/dL (14.0-18.0); IMM GRAN% 18.7 % (0.0-0.5); LYMPH# 4.86 X1000 (1.2-3.4); LYMPH% 7.9 % (20.5-51.1); MANUAL DIFF NEEDED? YES; MCHC 31.1 g/dL (33-37); MCV 93.2 FL (81-99); MONO# 4.35 X1000 (0.11-0.59); MONO% 7.1 % (1.7-9.3); MPV 9.6 FL (7.4-10.4); NEUT% 63.5 % (42.2-75.2); PLT 279 X1000 (130-400); RBC 3.38 XMIL (4.7-6.1)
[2017-01-06 05:25] LABS: AGAP 10; BUN 42 mg/dL (8-22); CALCIUM 8.7 mg/dL (8.8-10.2); CHLORIDE 96 mmol/L (98-107); COSMO 277; POTASSIUM 4.5 mmol/L (3.5-5.1); SODIUM 133 mmol/L (136-145); TCO2 27 mmol/L (25-35)
[2017-01-06] MEDS: HUMULIN R SUBQ SCH ×2 (06:35→11:32)
--- NOTE | 2017-01-06 07:22 | PROGRESS NOTE ---
DATE: 01/06/2017 PRESENT ILLNESS: The patient has a Klebsiella pneumoniae. He also has a leukocytosis which most likely is due to a prior injection of Neulasta. MEDICATIONS: The patient is just taking Levaquin by mouth. PHYSICAL EXAMINATION: Vital Signs: The patient's temperature is 98 degrees, pulse 67, respirations 20, blood pressure is 122/63. General: The patient in general looks to be an elderly and chronically ill-appearing male. He is in no acute distress. Lungs : Clear to auscultation. Cardiovascular: Heart rate is regular. Abdomen: Soft and nontender. Skin: IV site not erythematous or swollen. LAB AND X-RAY: The white count today is down to 61,660, hemoglobin 9.8, and platelet count 279,000. Creatinine 0.8. GFR is greater than 60. ASSESSMENT AND PLAN: I think the patient can be discharged today. I have electronically sent a prescription for Levaquin 500 mg by mouth daily. I am requesting that the patient see me back in the office in 2 weeks. At that time, I will examine him, get a chest x-ray and also repeat his CBC to see if the white count has further come down and hopefully be normalized. Patient does have now pneumonia. He also has an extreme leukocytosis which, as mentioned above, we think it is secondary to Neulasta injection. COMORBIDITIES: Include diabetes mellitus, COPD, lung cancer, gastroesophageal reflux disease, cigarette smoking, being elderly, and receiving Neulasta. cc: Dejan Joyner MD MTDD
[2017-01-06] MEDS: VENTOLIN HFA INH PRN (07:48)
[2017-01-06] MEDS: ELIQUIS PO SCH (08:48)
[2017-01-06] MEDS: JANUVIA PO SCH (08:48)
[2017-01-06] MEDS: DECADRON PO SCH (08:48)
[2017-01-06] MEDS: PROTONIX PO SCH (08:48)
[2017-01-06] MEDS: MIRALAX PO SCH (08:48)
[2017-01-06] MEDS: ZOLOFT PO SCH (08:48)
[2017-01-06] MEDS: RANEXA PO SCH (08:48)
[2017-01-06] MEDS: NORVASC PO SCH (08:48)
[2017-01-06] MEDS: FERROUS SULFATE PO SCH (08:49)
[2017-01-06] MEDS: MEGACE PO SCH (08:49)
[2017-01-06] MEDS: LOPRESSOR PO SCH (08:49)
[2017-01-06 11:41] VITALS: BP 125/53
--- NOTE | 2017-01-06 13:17 | DISCHARGE SUMMARY ---
ADMISSION DATE: 12/27/2016 DISCHARGE DATE: 01/06/2017 CONSULTATIONS: 1. Dr. Dank Rosas with Hematology/Oncology. 2. Dr. Dejan Joyner with Infectious Disease. 3. Dr. Osbaldo Boothe with Cardiology. 4. Dr. Sudheer Astorga with Pulmonology. PERTINENT PROCEDURES: 1. Pulmonary arteriogram showed no PE, improved aeration of disease consolidated mid left upper lobe, severe COPD with chronic bronchitis, mucous plugging segmental airway in the right upper lobe. 2. Echocardiogram showed an EF of 20-25%, with severe global hypokinesis. DISCHARGE DIAGNOSES: 1. Pneumonia secondary to Klebsiella. Patient will be discharged on p.o. Levaquin. 2. Persistent leukocytosis secondary to Neulasta shot, steroids and pneumonia infection. White count at the time of discharge was 61.66. 3. Zah-LG-wovenropv myocardial infection. The patient had medication adjustments with added amlodipine, continued on anti-anginals with Ranexa and metoprolol. Continued on statin therapy. Stable. 4. Stage IIIA non-small cell lung cancer. Followed by Dr. Rosas in the office. He is status post 1 cycle of carboplatin and Gemzar on December 17. Treatments placed on hold until follow- up after discharge. 5. Diabetes mellitus type 2. Continue Januvia. 6. Acute distal left common femoral deep vein thrombosis. Continue on Eliquis. 7. Situational depression. Continue Zoloft. 8. Anemia of chronic disease stable. 9. Hemoptysis. That has since resolved. The patient will continue on low-dose aspirin. HOSPITAL COURSE: Briefly, Mr. Valadez is a 76-year-old, male with a history of CAD status post CABG, oop-nxhqp-bcwt lung cancer, and diabetes mellitus. He came to the ED with chest pain and spitting up blood. He reported that the chest pain radiated up to his left upper extremity. He had pain similar to this before he took aspirin although he had been a little concerned about taking aspirin because of his hemoptysis. He also had some low blood pressures even less than 70 systolic. He also reported associated shortness of breath. Workup in the ED revealed elevated troponins. His EKGs were really not that remarkable most consistent with a non- ST-elevated DC. He had a PE protocol CT which was negative for PE. The patient was admitted for a non-STEMI. Initially given his hemoptysis felt it was going to be difficult to anticoagulate him but they did continue with aspirin and beta greg if he could tolerate it and nitroglycerin paste. Consulted Cardiology as well as an echocardiogram and a consult for Dr. Rosas as well as Dr. Astorga. The patient did have bilateral lower extremity venous Dopplers that did show an acute DVT noted in the distal left common femoral vein. Cardiology added a heparin drip, Eliquis was started for his DVT. Cardiology made adjustments to his antianginal. For his pneumonia and chronic bronchitis he was started on IV antibiotics. His sputum culture started growing gram- negative rods. It resulted as Klebsiella pneumoniae. Despite being on antibiotics the patient's white count kept increasing however after speaking with Hematology they believe that it is secondary to his Neulasta shot, his Decadron as well as his infectious processes. The patient did develop some diarrhea after several days of being on antibiotics. There was concern for C. diff. They did test his stools; it was negative for C. diff. Mr. Valadez has been afebrile throughout his admission. We do feel he is appropriate for discharge home today with home health. PHYSICAL EXAMINATION: Vital signs at time of discharge: Temperature is 98.9 degrees, heart rate 75, respirations 24, blood pressure is 125/53, O2 is 100% on room air. General : Mr. Valadez is an elderly male sitting up in bed, in no acute distress. HEENT: Atraumatic. Normocephalic. Cardiovascular: S1, S2 appreciated. Regular rate and rhythm. Pulmonary: Bilateral breath sounds. No rales or rhonchi noted. Abdomen: Soft, nontender, nondistended. Positive bowel sounds. Extremities: No edema. No cyanosis. Neurologic: The patient is alert and oriented x3. No focal deficits noted. DISCHARGE DIET: Healthy heart with Boost t.i.d. DISCHARGE MEDICATIONS: 1. ProAir inhaler 2 puffs inhaled q.4 hours p.r.n. 2. Norvasc 2.5 mg p.o. daily. 3. Eliquis 5 mg p.o. b.i.d. 4. Aspirin enteric-coated 81 mg p.o. daily. 5. Lipitor 40 mg p.o. at bedtime. 6. Decadron 4 mg p.o. q.a.m. 7. Decadron 2 mg p.o. at bedtime. 8. Iron 325 mg p.o. b.i.d. 9. Levaquin 500 mg p.o. daily for 10 days. 10. Megace 40 mg p.o. daily. 11. Lopressor 50 mg p.o. b.i.d. 12. Protonix 40 mg p.o. daily. 13. MiraLAX 17 g p.o. b.i.d. 14. Ranexa 500 mg p.o. b.i.d. 15. Zoloft 25 mg p.o. daily. 16. Januvia 100 mg p.o. daily. 17. Temazepam 15 mg p.o. at bedtime. DISPOSITION: Mr. Valadez is being discharged home with home health and [facility] [place]. DISCHARGE INSTRUCTIONS: He has been given a free trial Eliquis along with co- pay savings. He is to complete his full course of antibiotic and follow up with Dr. Dejan Joyner in 2 weeks. Follow up with Dr. Osbaldo Boothe in [address] Rosas as well as his primary care physician, Dr. Dianna Raya, in 7-10 days. He has been educated on aggressive pulmonary toilet. Turn cough, deep breathe and to watch out for any signs and symptoms of bleeding, whether it be for hemoptysis, coffee-grounds emesis, bright red or any dark tarry stools or any pink-tinged urine he will need to call his PCP or Dr. Rosas. The patient can return to the ED for any worsening of symptoms. DISCHARGE TIME: Greater than 40 minutes. Dictated by BLAS Iraheta for Junaid Saldana MD cc: MD Dianna Zhou MD pt examined, agree with above APENOT MTDD
== END 2017-01-06 13:15 | disposition home health service (06) ==
LOC: ED 18:51 → SUATTDRO 23:46 → 3S 23:46
PROVIDERS: ATTEND Internal Medicine